=== PATIENT | male | born 1945 | race Caucasian/White ===

== ENCOUNTER → 2017-01-02 | Outpatient (CLI) | payer MEDICARE ==
--- NOTE | 2017-01-02 12:04 | ECHOF ---
Referral Reason:Hypertention I10 Pre Op MEASUREMENTS -------- HEIGHT: 182.9 cm WEIGHT: 90.7 kg BP: RVIDd: 3.3 cm (< 3.3) IVSd: 1.0 cm (0.6 - 1.1) LVIDd: 4.9 cm (3.9 - 5.3) LVPWd: 1.0 cm (0.6 - 1.1) IVSs: 1.5 cm LVIDs: 3.6 cm LVPWs: 1.3 cm LA Diam: 3.7 cm (2.7 - 3.8) Ao Diam: 2.9 cm (2.0 - 3.7) AV Cusp: 2.3 cm (1.5 - 2.6) LA Diam: 4.1 cm (2.7 - 3.8) MV EXCURSION: 20.477 mm (> 18.000) MV EF SLOPE: 100 mm/s (70 - 150) EPSS: 0.3 cm MV E Florian: 0.53 m/s MV DecT: 274 ms MV A Florian: 0.49 m/s MV E/A Ratio: 1.08 AR PHT: 943 ms RAP: 5.00 mmHg RVSP: 29.40 mmHg FINDINGS -------- Sinus rhythm. This was a technically good study. LV size, wall thickness and systolic function are normal, with an EF greater than 55%. The left mando tricular size is normal. The right ventricle is normal in size. The left atrial size is normal. The right atrial size is normal. There is mild aortic regurgitation. Mild mitral regurgitation is present. Mild tricuspid regurgitation present. There is no evidence of pulmonary hypertension. The right v entricular systolic pressure, as measured by Doppler, is 29.40mmHg. Trace/mild (physiologic) pulmonic regurgitation. The aortic root size is normal. There is no pericardial effusion. CONCLUSIONS -------- 1. LV size, wall thickness and systolic function are normal, with an EF greater than 55%. 2. The left ventricular size is normal. 3. There is mild aortic regurgitation. 4. Mild mitral regurgitation is present. 5. Mild tricuspid regurgitation present. 6. There is no evidence of pulmonary hypertension. 7. The right ventricular systolic pressure, as measured by Doppler, is 29.40mmHg. 8. Trace/mild (physiologic) pulmonic regurgitation. 9. The aortic root size is normal. 10. There is no pericardial effusion. [employer]: Haleigh Bertrand RDCS
== END | disposition home or self-care (01) ==
LOC: RADECHMAIN 08:05
PROVIDERS: ATTEND Pediatrics
DX: Z01.818 Encounter for other preprocedural examination (principal); I08.3 Combined rheumatic disorders of mitral, aortic and tricuspid valves; I10 Essential (primary) hypertension
CPT/HCPCS: 93306

== ENCOUNTER → 2018-02-26 | Outpatient (CLI) | payer MEDICARE ==
--- NOTE | 2018-02-26 13:59 | CT ---
EXAMINATION TYPE: CT lumbar spine wo con DATE OF EXAM: 02/26/2018 11:48 AM COMPARISON: None HISTORY: Bilateral leg weakness and numbness post surgery Jan 2018. CT DLP: 1219.3 mGycm Automated exposure control for dose reduction was used. Unenhanced CT of the lumbar spine was performed. Bone and soft tissue window settings are submitted as well as coronal and sagittal reconstructions. Correlate with the numbering system utilized on the exam prior to any surgical intervention. L1-L2: Degenerative disc disease with mild hypertrophic change of the facets. No obvious disc herniat ion or canal stenosis. L2-L3: Degenerative disc disease with no obvious canal stenosis or foraminal encroachment.. L3-L4: Postsurgical change with grade 1 anterolisthesis L3 on L4. Metallic artifact obscures the spin al canal resulting in nondiagnostic assessment. Abnormal attenuation the posterior soft tissues exten ding from L2-S1 likely related postsurgical scar or granulation. There is reduced mineralization of t he endplates at L2-L3 may be postsurgical. Correlate clinically to exclude infection otherwise consid er MRI. L4-L5: Postsurgical changes with extensive metallic hardware artifact results in nondiagnostic asses sment of the neural foramina and spinal canal L5-S1: Severe degenerative disc disease with postsurgical changes with. Metallic artifact results in nondiagnostic assessment spinal canal. There is cystic structure in the left adnexa may be related to a bladder diverticulum but is only par tially included. Vascular calcification of the aorta. Abnormal soft tissue seen posteriorly at the po stsurgical levels likely related to postsurgical scar or granulation tissue. It does encase upon the posterior margin of the sacrum. Due to resolution and artifact assessment is limited. 5 mm hyperdense area within the upper pole left kidney. Mild bladder wall thickening correlate for chronic cystitis. IMPRESSION: 1. Postsurgical change with grade 1 anterolisthesis of the presumed L3 on L4 segment. There is reduce d mineralization of the endplates at this level which may be postsurgical correlate clinically to exc lude infection or with MRI as warranted. 2. At the surgical levels the spinal canal is nondiagnostic in assessment due to extreme metallic art ifact. 3. 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 There also is mild bladder wall thickening correlate for cystitis otherwise, consider other etiologies 4. There is a 5 mm hyperdense lesion within the upper pole left kidney likely related to hemorrhagic cyst. Short-term follow-up ultrasound could be obtained.
== END | disposition home or self-care (01) ==
LOC: RADCTMAIN 11:28
DX: M43.16 Spondylolisthesis, lumbar region (principal)
CPT/HCPCS: 72131

== ENCOUNTER → 2018-04-01 | Outpatient (CLI) | payer MEDICARE ==
--- NOTE | 2018-04-01 13:56 | CT ---
EXAMINATION TYPE: CT lumbar spine wo con DATE OF EXAM: 04/01/2018 12:58 PM COMPARISON: CT lumbar spine February 26, 2018 HISTORY: Lumbar spondylolisthesis per order. Ongoing low back pain with surgery January 24, 2018. CT DLP: 976 mGycm Automated exposure control for dose reduction was used. 5 lumbar-type vertebra are redemonstrated. There is stable slight levoconvex scoliotic curvature cent ered at L3-L4 level. Stable slight grade 1 retrolisthesis L4 on L5. Posterior interpedicular rods and screws transfix L3-S1 levels bilaterally similar to prior. There is persistent metallic disc materia l L3-L4 level with surrounding lucency involving the adjacent endplates. There is persistent metallic disc material L4-L5 level. There is persistent moderate to severe disc space narrowing L5-S1 level. Increased sclerosis at surgical level redemonstrated. Vertebral body heights and disc space heights a lucio L3 level are stable and satisfactory. Axial images at L1-L2 level redemonstrate mild facet degenerative changes bilaterally. Spinal canal i s preserved. Bilateral neural foramina are patent. Bilateral laminectomy defects and spinous process resection L4-S1 levels bilaterally is redemonstrate d. Metallic artifact at L3-S1 levels causes streak artifact making evaluation suboptimal similar to p riociarra. Punctate density left S1-S2 level posteriorly axial image 74 measuring 3 mm is of uncertain chris ology. Prior study axial images did not include through this level. Hyperdense nonabsorbed pills righ t lower quadrant coronal image 3 incidentally noted. Stable 5 mm hyperdense round lesion posterior up per pole left kidney axial image 13 favors proteinaceous cyst. IMPRESSION: Postsurgical change L3-S1 levels with stable alignment as detailed above.
== END ==
LOC: RADCTMAIN 12:16
DX: M47.26 Other spondylosis with radiculopathy, lumbar region (principal); Z98.1 Arthrodesis status
CPT/HCPCS: 72131

== ENCOUNTER → 2018-05-06 | Outpatient (CLI) | payer MEDICARE ==
--- NOTE | 2018-05-06 09:20 | XR ---
EXAM TYPE: LUMBAR SPINE X RAY SERIES COMPARISON: NONE HISTORY: Postop TECHNIQUE: 4 views are submitted. FINDINGS: Postsurgical changes are seen involving the lower lumbar spine. Deformity involving the inferior endp late of L3 is stable. This appears somewhat irregular correlate with surgical history. There is madison rn for infection correlate with MRI with contrast. There is postsurgical changes at levels L3-S1. Ali gnment is stable. IMPRESSION: 1. Stable postsurgical changes with deformity involving the endplate of L3 and superior endplate of L 4 level the surgical level appears stable from the prior CT scan. This may be postsurgical. This appe ars unchanged dating back to 02/24/2017.
== END ==
LOC: RADXRMAIN 07:27
PROVIDERS: ATTEND Physician Assistant Surgical
DX: M43.8X6 Other specified deforming dorsopathies, lumbar region (principal); Z98.890 Other specified postprocedural states
CPT/HCPCS: 72100

== ENCOUNTER → 2018-08-12 | Outpatient (CLI) | payer MEDICARE ==
--- NOTE | 2018-08-12 09:07 | XR ---
EXAM TYPE: LUMBAR SPINE X RAY SERIES COMPARISON: NONE HISTORY: spondylosis with radiculopathy TECHNIQUE: 4 views are submitted. FINDINGS: Postsurgical changes are seen involving the lower lumbar spine. Deformity involving the inferior endp late of L3 is stable. This appears somewhat irregular correlate with surgical history. There is madison rn for infection correlate with MRI with contrast. There is postsurgical changes at levels L3-S1. Ali gnment is stable. IMPRESSION: 1. Stable postsurgical changes with deformity and irregularity involving the endplate of L2 and L3 at the surgical level appears stable from the prior exam. This may be postsurgical. This appears unchan ged dating back to 02/24/2017.
== END | disposition home or self-care (01) ==
LOC: RADXRMAIN 07:38
PROVIDERS: ATTEND Physician Assistant Surgical
DX: M43.8X6 Other specified deforming dorsopathies, lumbar region (principal); M47.26 Other spondylosis with radiculopathy, lumbar region; Z98.890 Other specified postprocedural states
CPT/HCPCS: 72100

== ENCOUNTER 2018-09-18 09:51 | Inpatient (IN) | payer MEDICARE ==
[2018-09-18] MEDS ORDERED: diphenhydrAMINE 25 MG CAP PO PRN (10:44)
[2018-09-18] MEDS ORDERED: PROCHLORPERAZINE SUPPOSITORY 25 MG SUPP RECTAL PRN (10:44)
[2018-09-18] MEDS ORDERED: METOCLOPRAMIDE 5 MG/ML 2 ML VIAL IVP PRN (10:44)
[2018-09-18] MEDS ORDERED: ONDANSETRON 4 MG/2 ML VIAL IVP PRN (10:44)
[2018-09-18] MEDS ORDERED: TEMAZEPAM 15 MG CAP PO PRN (10:44)
[2018-09-18] MEDS ORDERED: SENNOSIDES-DOCUSATE SODIUM 1 EACH TAB PO PRN (10:44)
[2018-09-18] MEDS ORDERED: HYDROmorphone 0.5 MG/0.5 ML SYRINGE IVP PRN ×3 (10:44)
[2018-09-18] MEDS ORDERED: HYDROcodone/APAP 5-325MG 1 EACH TAB PO PRN (10:44)
[2018-09-18] MEDS: HYDROcodone/APAP 5-325MG 1 EACH TAB PO PRN ×2 (11:16→17:44)
--- NOTE | 2018-09-18 11:19 | P.HPOR ---
History of Present Illness H&P Date: 09/18/18 Chief Complaint: Right upper arm pain Patient is a 73 year old male. Ahmet presents to the office for recheck of his left shoulder. He returns to the office with increased symptoms about his right shoulder today. Patient has had recent bout of bronchitis and had been running a fever. He was placed on an oral steroid and antibiotic which he finished this past Sunday. He has had considerable pain about his right shoulder since this past Sunday. He does not appear healthy today. He has fullness in the triceps and shoulder and his shoulder is very painful for him today. The patient is right hand dominant. Patient states his pain level is at 8/10. He continues to have pain. He describes his pain as sharp, throbbing and aching. The pain is constant. Patient states his symptoms are worse with lifting, sitting and lying in bed. Patient does not work outside of his home Previous history: He is status post reverse left total shoulder arthroplasty, performed on 12/12/13. Patient continues to do very well postoperatively. Patient is able to do the things he likes to do. He is happy with his shoulder. He is having no left shoulder pain and rates his pain 0/10. He does have complaint of right shoulder pain today. He states that he has been experiencing ongoing symptoms about his right shoulder for quite some time. He states that his symptoms have been getting progressively worse over time. Patient states on his intake form that pain level is at 8/10. He continues to have pain and weakness. He describes his pain as sharp, stabbing and throbbing. The pain is intermittent. Patient states his symptoms are worse with stairs and lying in bed. Review of Systems All systems: negative Constitutional: Reports chills, Reports fever, Denies anorexia, Denies daytime sleepiness Eyes: denies blurred vision, denies pain Ears, nose, mouth and throat: Denies headache, Denies sore throat Cardiovascular: Denies chest pain, Denies shortness of breath Respiratory: Denies cough Gastrointestinal: Denies abdominal pain, Denies diarrhea, Denies nausea, Denies vomiting Musculoskeletal: Denies myalgias Integumentary: Denies pruritus, Denies rash Neurological: Denies numbness, Denies weakness Psychiatric: Denies anxiety, Denies depression Endocrine: Denies fatigue, Denies weight change Past Medical History Past Medical History: Hypertension, Osteoarthritis (OA), Pneumonia Additional Past Medical History / Comment(s): VARICOSE VEINS History of Any Multi-Drug Resistant Organisms: None Reported Past Surgical History: Back Surgery Additional Past Surgical History / Comment(s): LAURA CARPEL TUNNEL, LT SHOULDER SURGERY X 2 Past Anesthesia/Blood Transfusion Reactions: No Reported Reaction Past Psychological History: No Psychological Hx Reported Smoking Status: Never smoker Past Alcohol Use History: Occasional Past Drug Use History: None Reported - Past Family History Mother Family Medical History: Cancer Brother(s) Family Medical History: Cancer Medications and Allergies Home Medications Medication Instructions Recorded Confirmed Type Aspirin 81 mg PO DAILY 12/05/13 12/05/13 History amLODIPine BESYLATE [Norvasc] 10 mg PO QAM 12/05/13 12/12/13 History Doxycycline Monohydrate [Monodox] 100 mg PO Q12HR #10 cap 12/13/13 Rx Hydrocodone/Acetaminophen [Sumner 1 - 2 each PO Q6HR PRN #90 tab 12/13/13 Rx 5-325] Allergies Allergy/AdvReac Type Severity Reaction Status Date / Time No Known Allergies Allergy Verified 12/04/13 15:52 Physical Examination Right Shoulder Examination Skin: There are no rashes, ulcerations or lesions in the regions examined. Mental Status: Patient is oriented to time, place and person. Mood and affect are appropriate. Respiratory: Appears to be short of breath. HEENT: Normal cephalic atraumatic. Extraocular movements are intact. . C-Spine: Normal (No tenderness to palpation, Full flexion, extension and rotation without pain, negative Spurlings Right shoulder: Fullness in the triceps and in the shoulder. Mild erythema Pain to palpation: Diffuse tenderness throughout the shoulder and upper arm. Not put through shoulder exam secondary to pain. Neurovascular status: There is an intact EPL, FPL, extensor indicis, hand intrinsics and the FDP to the small finger. Intact radial, median and ulnar nerve sensations as well as 2+ radial pulse and brisk capillary refill distally. Results Right shoulder: Patient has advanced glenohumeral joint osteoarthritis with significant medial erosion of the glenoid. There is no evidence of fracture. No evidence of osseous lesions. X-rays of the left shoulder including 2+ views were ordered, obtained and interpreted from an orthopedic standpoint. Components intact and in place without evidence of migration or loosening. No evidence of osteolysis. Assessment and Plan (1) Shoulder pain, right Narrative/Plan: The clinical findings were discussed with the patient. Natural history is discussed. The possibility of recurrence, worsening, and/or the need for further management was addressed with the patient at length. Options of treatment were reviewed including observation, conservative treatment, as well as the possibility of surgical intervention. We will plan on direct admit. He will need to be evaluated by medicine. Likely infectious disease. We will need and MRI of the shoulder and humerus. We were not able to aspirate any fluid and he will need labs. Based on the patients response to current treatment, the patient may need further treatment in the form of further imaging with MRI or CT, physical the rapy, injections, bracing/casting, or possibility of surgery. The patients questions were answered to the best of my ability in a language that was understood and the patient agrees with the plan. Current Visit: Yes Status: Acute Priority: Medium Code(s): M25.511 - PAIN IN RIGHT SHOULDER SNOMED Code(s): 68916748 Time with Patient: Greater than 30
[2018-09-18 11:40] LABS: Basophils # (A) 0.1 k/uL (0-0.2); Basophils % (A) 0 %; Eosinophils # (A) 0.1 k/uL (0-0.7); Eosinophils % (A) 0 %; HCT 39.2 % (39.0-53.0); HGB 11.8 gm/dL (13.0-17.5); Hypochromasia Slight; Lymphocytes # (A) 0.9 k/uL (1.0-4.8); Lymphocytes % (A) 5 %; MCH 29.7 pg (25.0-35.0); MCHC 30.1 g/dL (31.0-37.0); MCV 98.8 fL (80.0-100.0); Mean Platelet Volume 8.2; Monocytes # (A) 0.6 k/uL (0-1.0); Monocytes % (A) 3 %; Neutrophils # (A) 17.9 k/uL (1.3-7.7); Neutrophils % (A) 91 %; Platelet Count 368 k/uL (150-450); RBC 3.97 m/uL (4.30-5.90); RDW 14.9 % (11.5-15.5); WBC 19.7 k/uL (3.8-10.6)
[2018-09-18 11:42] LABS: Albumin 2.5 g/dL (3.5-5.0); Calcium 8.3 mg/dL (8.4-10.2); Potassium 4.9 mmol/L (3.5-5.1); Total Bilirubin 0.7 mg/dL (0.2-1.3); Total Protein 5.6 g/dL (6.3-8.2)
[2018-09-18] MEDS ORDERED: VANCOMYCIN IV PER PHARMACY 1 EACH MISC MISCELLANE PRN (11:52)
[2018-09-18] MEDS ORDERED: KETOROLAC 30 MG/ML 1 ML VIAL IVP PRN (11:55)
--- NOTE | 2018-09-18 12:34 | P.CONS ---
History of Present Illness - Reason for Consult Possible infected right shoulder. - History of Present Illness 73-year-old gentleman was admitted for severe right shoulder pain. Patient appears to have severe osteoarthritis patient denied any fever patient had fever when he had bronchitis about a week ago patient was treated with oxygen and systemic steroids. Patient the right arm pain has been progressively getting worse. Patient does have leukocytosis significant limitation of movements of the right shoulder. Patient I shoulder is warm to touch but I my suspicion is patient has severe inflammation rather than infection of the shoulder. Patient denied any recent hospitalization or a PICC line. I can't clearly see any reason for hematogenous spread of the infection to the right sore shoulder. Although this cannot be completely ruled out I'll obtain blood cultures patient will be started on vancomycin empirically will discuss with orthopedic surgery may need the incision and drainage debridement and cultures of the synovial fluid. And had left shoulder arthroplasty in 2013 10 pain in the right shoulder is severely/10 sharp in nature and throbbing Review of Systems REVIEW OF SYSTEMS: CONSTITUTIONAL: No fever, no malaise, no fatigue. HEENT: No recent visual problems or hearing problems. Denied any sore throat. CARDIOVASCULAR: No chest pain, orthopnea, PND, no palpitations, no syncope. PULMONARY: No shortness of breath, no cough, no hemoptysis. GASTROINTESTINAL: No diarrhea, no nausea, no vomiting, no abdominal pain. NEUROLOGICAL: No headaches, no weakness, no numbness. HEMATOLOGICAL: Denies any bleeding or petechiae. GENITOURINARY: Denies any burning micturition, frequency, or urgency. MUSCULOSKELETAL/RHEUMATOLOGICAL: As mentioned above ENDOCRINE: Denies any polyuria or polydipsia. The rest of the 14-point review of systems is negative. Past Medical History Past Medical History: Hypertension, Osteoarthritis (OA), Pneumonia Additional Past Medical History / Comment(s): VARICOSE VEINS History of Any Multi-Drug Resistant Organisms: None Reported Past Surgical History: Back Surgery Additional Past Surgical History / Comment(s): LAURA CARPEL TUNNEL, LT SHOULDER SURGERY X 2 Past Anesthesia/Blood Transfusion Reactions: No Reported Reaction Past Psychological History: No Psychological Hx Reported Smoking Status: Never smoker Past Alcohol Use History: Occasional Past Drug Use History: None Reported - Past Family History Mother Family Medical History: Cancer Brother(s) Family Medical History: Cancer Medications and Allergies Home Medications Medication Instructions Recorded Confirmed Type Bimatoprost [Lumigan .01% Ophth 1 drop BOTH EYES HS 09/18/18 09/18/18 History Soln] Brimonidine Tartrate [Alphagan P 1 drops LEFT EYE BID 09/18/18 09/18/18 History 0.2% Ophth Soln] Diclofenac Sodium [Voltaren] 75 mg PO BID 09/18/18 09/18/18 History Dorzolamide HCl/Pf [Dorzolamide 2% 1 drop LEFT EYE BID 09/18/18 09/18/18 History Eye Drop] Hydrochlorothiazide 25 mg PO DAILY 09/18/18 09/18/18 History Tamsulosin HCl [Flomax] 0.4 mg PO HS 09/18/18 09/18/18 History Allergies Allergy/AdvReac Type Severity Reaction Status Date / Time No Known Allergies Allergy Verified 09/18/18 11:50 Physical Exam Vitals: Vital Signs Temp Pulse Resp BP Pulse Ox 09/18/18 11:08 98.2 F 83 16 117/68 95 Intake and Output 09/17/18 09/18/18 09/18/18 22:59 06:59 14:59 Other: Weight 96.5 kg PHYSICAL EXAMINATION: GENERAL: The patient is alert and oriented x3, not in any acute distress. Well developed, well nourished. HEENT: Pupils are round and equally reacting to light. EOMI. No scleral icterus. No conjunctival pallor. Normocephalic, atraumatic. No pharyngeal erythema. No thyromegaly. CARDIOVASCULAR: S1 and S2 present. No murmurs, rubs, or gallops. PULMONARY: Chest is clear to auscultation, no wheezing or crackles. ABDOMEN: Soft, nontender, nondistended, normoactive bowel sounds. No palpable organomegaly. MUSCULOSKELETAL: As mentioned above EXTREMITIES: No cyanosis, clubbing, or pedal edema. NEUROLOGICAL: Gross neurological examination did not reveal any focal deficits. SKIN: No rashes. Results CBC & Chem 7: 09/18/18 11:01 09/18/18 11:01 Labs: Abnormal Lab Results - Last 24 Hours (Table) 09/18/18 09/18/18 Range/Units 11:01 11:01 WBC 19.7 H (3.8-10.6) k/uL RBC 3.97 L (4.30-5.90) m/uL Hgb 11.8 L (13.0-17.5) gm/dL MCHC 30.1 L (31.0-37.0) g/dL Neutrophils # 17.9 H (1.3-7.7) k/uL Lymphocytes # 0.9 L (1.0-4.8) k/uL Sodium 136 L (137-145) mmol/L Chloride 96 L (98-107) mmol/L Carbon Dioxide 32 H (22-30) mmol/L BUN 34 H (9-20) mg/dL Glucose 109 H (74-99) mg/dL Calcium 8.3 L (8.4-10.2) mg/dL Alkaline Phosphatase 451 H (38-126) U/L Total Protein 5.6 L (6.3-8.2) g/dL Albumin 2.5 L (3.5-5.0) g/dL Assessment and Plan Plan: -Right shoulder pain: Possibility of severe inflammation of the right shoulder area and infection although infection cannot be completely ruled out further management as mentioned above. The cultures will be after and patient will be empirically started on vancomycin, further management regarding incision and drainage or cellulitis, synovial fluid Assessment as per orthopedic surgery -Leukocytosis: Adrian is secondary to either infection or reactive from the inflammation -Hypertension: Monitor blood pressure hold off amlodipine for now. -DVT prophylaxis per primary service.
[2018-09-18 12:41] LABS: C Reactive Protein 328.9 mg/L (<10.0)
[2018-09-18] MEDS ORDERED: VANCOMYCIN 1,750 MG in SODIUM CHLORIDE 0.9% 500 ML 500 ML IVPB ONE (13:00)
[2018-09-18] MEDS ORDERED: LORazepam 2 MG/ML INJ IV STA (13:35)
--- NOTE | 2018-09-18 17:31 | MR ---
EXAMINATION TYPE: MR humerus RT w/wo con DATE OF EXAM: 09/18/2018 COMPARISON: None HISTORY: Rt proximal humerus pain/swelling x 1 week CONTRAST: Standard multiplanar, multisequence MRI departmental protocol utilizing 9.5 mL intravenous Gadavist g adolinium contrast. FINDINGS: On the T1 and T2 images there is a 2 x 1 cm area of decreased signal in the subchondral hum eral head on the superior aspect. This is consistent with avascular necrosis. There is narrowing of t he glenohumeral joint space with spur formation. I see no fracture. There is shoulder joint effusion. There is severe narrowing of the subacromial joint space. There is retraction of the supraspinatus t endon. There is thickening and enhancement of the joint capsule on the lateral aspect at the greater tuberosity of the humerus. 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 Large rotator cuff tear with retraction of the supraspinatus tendon. Mild shou lder joint effusion. Pathologic enhancement of the joint capsule on the lateral aspect. This is consi stent with synovitis. Septic arthritis is possible. Neuropathic arthropathy is possible also.
[2018-09-18] MEDS: FAMOTIDINE 20 MG TAB PO SCH (20:37)
[2018-09-19] MEDS: HYDROcodone/APAP 5-325MG 1 EACH TAB PO PRN ×5 (01:39→22:49)
[2018-09-19] MEDS: VANCOMYCIN 1,750 MG in SODIUM CHLORIDE 0.9% 500 ML 500 ML IVPB SCH ×2 (05:23→22:44)
[2018-09-19 07:50] LABS: HCT 36.9 % (39.0-53.0); HGB 11.4 gm/dL (13.0-17.5); Hypochromasia Slight; MCH 30.4 pg (25.0-35.0); MCHC 30.9 g/dL (31.0-37.0); MCV 98.6 fL (80.0-100.0); Mean Platelet Volume 7.6; Platelet Count 391 k/uL (150-450); RBC 3.74 m/uL (4.30-5.90); RDW 14.8 % (11.5-15.5); WBC 15.3 k/uL (3.8-10.6)
[2018-09-19 08:16] LABS: African American GFR (CKD) >90 (>60 ml/min/1.73 sqM)
[2018-09-19 09:01] LABS: Band Neutrophils % 5 %; Lymphocytes # (M) 1.38 k/uL (1.0-4.8); Metamyelocytes # (M) 0.31 k/uL (0); Metamyelocytes % 2 %; Monocytes # (M) 1.22 k/uL (0-1.0); Myelocytes # (M) 0.31 k/uL (0); Myelocytes % 2 %; Neutrophils % (M) 76 %; Nucleated Red Blood Cells 0 /100 WBC (0-0); Total Cells Counted 200
--- NOTE | 2018-09-19 10:58 | P.PN ---
Subjective Progress Note Date: 09/19/18 Principal diagnosis: Right shoulder pain Patient is seen at bedside this morning. He feels improved overall. His right shoulder and upper arm pain is improved. He is denying fever or chills. He denies numbness or tingling. Objective - Vital Signs Vital signs: Vital Signs Temp 98.7 F 09/19/18 07:44 Pulse 85 09/19/18 07:44 Resp 14 09/19/18 07:44 BP 102/63 09/19/18 07:44 Pulse Ox 92 L 09/19/18 07:44 Intake & Output 09/18/18 09/19/18 09/19/18 18:59 06:59 18:59 Intake Total 222 Balance 222 Weight 96.5 kg Intake: Oral 222 Other: # Voids 2 2 - Exam He has improved active ROM where he can actively forward elevate the RUE. There is mild improved edema. NVI with pulse, motor and sensation throughout the RUE. - Constitutional General appearance: Present: no acute distress - Labs CBC & Chem 7: 09/19/18 07:13 09/19/18 07:13 Labs: Abnormal Lab Results - Last 24 Hours (Table) 09/18/18 09/18/18 09/18/18 Range/Units 11:01 11:01 11:01 WBC 19.7 H (3.8-10.6) k/uL RBC 3.97 L (4.30-5.90) m/uL Hgb 11.8 L (13.0-17.5) gm/dL Hct (39.0-53.0) % MCHC 30.1 L (31.0-37.0) g/dL Neutrophils # 17.9 H (1.3-7.7) k/uL Neutrophils # (Manual) (1.3-7.7) k/uL Lymphocytes # 0.9 L (1.0-4.8) k/uL Monocytes # (Manual) (0-1.0) k/uL Metamyelocytes # (Man) (0) k/uL Myelocytes # (Manual) (0) k/uL ESR 99 H (0-15) mm/hr Sodium 136 L (137-145) mmol/L Chloride 96 L (98-107) mmol/L Carbon Dioxide 32 H (22-30) mmol/L BUN 34 H (9-20) mg/dL Glucose 109 H (74-99) mg/dL Calcium 8.3 L (8.4-10.2) mg/dL Alkaline Phosphatase 451 H (38-126) U/L C-Reactive Protein 328.9 H (<10.0) mg/L Total Protein 5.6 L (6.3-8.2) g/dL Albumin 2.5 L (3.5-5.0) g/dL 09/19/18 Range/Units 07:13 WBC 15.3 H (3.8-10.6) k/uL RBC 3.74 L (4.30-5.90) m/uL Hgb 11.4 L (13.0-17.5) gm/dL Hct 36.9 L (39.0-53.0) % MCHC 30.9 L (31.0-37.0) g/dL Neutrophils # (1.3-7.7) k/uL Neutrophils # (Manual) 12.30 H (1.3-7.7) k/uL Lymphocytes # (1.0-4.8) k/uL Monocytes # (Manual) 1.22 H (0-1.0) k/uL Metamyelocytes # (Man) 0.31 H (0) k/uL Myelocytes # (Manual) 0.31 H (0) k/uL ESR (0-15) mm/hr Sodium (137-145) mmol/L Chloride (98-107) mmol/L Carbon Dioxide (22-30) mmol/L BUN (9-20) mg/dL Glucose (74-99) mg/dL Calcium (8.4-10.2) mg/dL Alkaline Phosphatase (38-126) U/L C-Reactive Protein (<10.0) mg/L Total Protein (6.3-8.2) g/dL Albumin (3.5-5.0) g/dL - Imaging and Cardiology MRI of right humerus shows AVN with severe OA at the right shoulder including RTC tear and retraction. There is some effusion. No definitive infection or lesions but could not be ruled out. Assessment and Plan (1) Shoulder pain, right Narrative/Plan: He is improved clinically this morning. Continue pain management. Appreciate IM and ID assistance in recommendations and care. We will continue to monitor and make further recommendations pending his clinical course . Current Visit: Yes Status: Acute Priority: Medium Code(s): M25.511 - PAIN IN RIGHT SHOULDER SNOMED Code(s): 51503698 Time with Patient: Less than 30
[2018-09-19] MEDS: ASPIRIN 81 MG PO SCH (11:21)
[2018-09-19] MEDS: FAMOTIDINE 20 MG TAB PO SCH ×2 (11:21→20:34)
--- NOTE | 2018-09-19 13:09 | P.CONS ---
History of Present Illness - Reason for Consult Consult date: 09/19/18 Right upper extremity infection, sepsis - History of Present Illness This is a 73-year-old male who is well-known to ID service as he initially seen for infection following carpal tunnel release surgery 15 years a go and has been seen periodically over the years. Patient gives history of developing pain in his right shoulder 1 week ago Sunday. He states he also had some fever and chills all day on Sunday and a little bit of cough. He went to his PCP was placed on steroids and antibiotic which she completed last Sunday. He was feeling well but then developed left shoulder pain on Sunday which then went over to his right shoulder by Sunday. He was seen at Dr. White's office and aspiration was attempted on the right shoulder which patient states was unsuccessful and patient was admitted directly to the [facility]. He was found to be afebrile, WBC 19.7, sed rate 99 and CRP 328. Creatinine 0.83. 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 Large rotator cuff tear with retraction of the supraspinatus tendon. Mild shoulder joint effusion. Pathologic enhancement of the joint capsule on the lateral aspect. Consistent with synovitis. Septic arthritis is possible. Neuropathic arthropathy is possible also. Patient has been started on vancomycin. Patient states he has had significant improvement in swelling to his right arm but he continues to have pain and very minimal range of motion. Review of Systems Constitutional: Reports chills, Reports fatigue, Reports fever, Denies lethargy, Denies malaise, Denies poor appetite, Denies weakness Ears, nose, mouth and throat: Denies dental pain, Denies nasal congestion, Denies nasal discharge, Denies vertigo Cardiovascular: Denies decreased exercise tolerance, Denies dyspnea on exertion, Denies edema, Denies leg edema, Denies lightheadedness, Denies syncope Respiratory: Denies congestion, Denies cough, Denies cough with sputum, Denies dyspnea, Denies excessive sputum, Denies hemoptysis, Denies home oxygen Gastrointestinal: Denies abdominal pain, Denies loss of appetite, Denies nausea, Denies vomiting Genitourinary: Reports urinary retention (Patient straight cath at nighttime only.), Denies dysuria Musculoskeletal: right: shoulder pain, shoulder stiffness, shoulder swelling Integumentary: Reports color changes, Reports pruritus, Denies rash, Denies wounds Neurological: Denies ataxia, Denies change in mentation, Denies confusion, Denies numbness, Denies weakness Psychiatric: Denies anxiety, Denies depression Past Medical History Past Medical History: Hypertension, Osteoarthritis (OA), Pneumonia Additional Past Medical History / Comment(s): VARICOSE VEINS History of Any Multi-Drug Resistant Organisms: None Reported Past Surgical History: Back Surgery Additional Past Surgical History / Comment(s): LAURA CARPEL TUNNEL, LT SHOULDER SURGERY X 2 Past Anesthesia/Blood Transfusion Reactions: No Reported Reaction Past Psychological History: No Psychological Hx Reported Smoking Status: Never smoker Past Alcohol Use History: Occasional Additional Past Alcohol Use History / Comment(s): Patient is a lifelong nonsmoker. No illicit drug use. Occasional alcohol use. 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 He also has miniature horses and barn cats as well as a dog. No recent travel. He lives at home with his . Past Drug Use History: None Reported - Past Family History Mother Family Medical History: Cancer Brother(s) Family Medical History: Cancer Medications and Allergies Home Medications Medication Instructions Recorded Confirmed Type Bimatoprost [Lumigan .01% Ophth 1 drop BOTH EYES HS 09/18/18 09/18/18 History Soln] Brimonidine Tartrate [Alphagan P 1 drops LEFT EYE BID 09/18/18 09/18/18 History 0.2% Ophth Soln] Diclofenac Sodium [Voltaren] 75 mg PO BID 09/18/18 09/18/18 History Dorzolamide HCl/Pf [Dorzolamide 2% 1 drop LEFT EYE BID 09/18/18 09/18/18 History Eye Drop] Hydrochlorothiazide 25 mg PO DAILY 09/18/18 09/18/18 History Tamsulosin HCl [Flomax] 0.4 mg PO HS 09/18/18 09/18/18 History Allergies Allergy/AdvReac Type Severity Reaction Status Date / Time No Known Allergies Allergy Verified 09/18/18 11:50 Physical Exam Vitals: Vital Signs Temp Pulse Resp BP Pulse Ox 09/19/18 07:44 98.7 F 85 14 102/63 92 L 09/19/18 04:00 18 09/19/18 02:54 98.0 F 78 17 98/72 97 09/19/18 00:50 16 09/18/18 20:21 98.7 F 85 17 107/64 93 L 09/18/18 20:15 16 09/18/18 11:08 98.2 F 83 16 117/68 95 Intake and Output 09/18/18 09/19/18 09/19/18 22:59 06:59 14:59 Intake Total 222 Balance 222 Intake: Oral 222 Other: # Voids 1 2 Gen: This is 73-year-old male. He is sitting up in bed and appears to be comfortable and in no acute distress. HEENT: Head is atraumatic, normocephalic. Pupils equal, round. Sclerae is anicteric. Conjunctiva pink. Because members of the mouth are moist. No thrush noted. NECK: Supple. No JVD. No lymphadenopathy. No thyromegaly. LUNGS: Clear to auscultation. No wheezes or rhonchi. No intercostal retractions . HEART: Regular rate and rhythm. No murmur. ABDOMEN: Soft. Bowel sounds are present. No masses. No tenderness. EXTREMITIES: No pedal edema. No calf tenderness. Dorsalis pedis +2 bilaterally. To the right shoulder patient has significant swelling extending into his fingers and limited range of motion to the right shoulder. NEUROLOGICAL: Patient is awake, alert and oriented x3. Cranial nerves 2 through 12 are grossly intact. Results Results: Laboratory Results WBC 15.3 k/uL (3.8-10.6) H 09/19/18 07:13 RBC 3.74 m/uL (4.30-5.90) L 09/19/18 07:13 Hgb 11.4 gm/dL (13.0-17.5) L 09/19/18 07:13 Hct 36.9 % (39.0-53.0) L 09/19/18 07:13 MCV 98.6 fL (80.0-100.0) 09/19/18 07:13 MCH 30.4 pg (25.0-35.0) 09/19/18 07:13 MCHC 30.9 g/dL (31.0-37.0) L 09/19/18 07:13 RDW 14.8 % (11.5-15.5) 09/19/18 07:13 Plt Count 391 k/uL (150-450) 09/19/18 07:13 Neutrophils % 91 % 09/18/18 11:01 Neutrophils % (Manual) 76 % 09/19/18 07:13 Band Neutrophils % 5 % 09/19/18 07:13 Lymphocytes % 5 % 09/18/18 11:01 Lymphocytes % (Manual) 9 % 09/19/18 07:13 Monocytes % 3 % 09/18/18 11:01 Monocytes % (Manual) 8 % 09/19/18 07:13 Eosinophils % 0 % 09/18/18 11:01 Basophils % 0 % 09/18/18 11:01 Metamyelocytes % 2 % 09/19/18 07:13 Myelocytes % 2 % 09/19/18 07:13 Neutrophils # 17.9 k/uL (1.3-7.7) H 09/18/18 11:01 Neutrophils # (Manual) 12.30 k/uL (1.3-7.7) H 09/19/18 07:13 Lymphocytes # 0.9 k/uL (1.0-4.8) L 09/18/18 11:01 Lymphocytes # (Manual) 1.38 k/uL (1.0-4.8) 09/19/18 07:13 Monocytes # 0.6 k/uL (0-1.0) 09/18/18 11:01 Monocytes # (Manual) 1.22 k/uL (0-1.0) H 09/19/18 07:13 Eosinophils # 0.1 k/uL (0-0.7) 09/18/18 11:01 Basophils # 0.1 k/uL (0-0.2) 09/18/18 11:01 Metamyelocytes # (Man) 0.31 k/uL (0) H 09/19/18 07:13 Myelocytes # (Manual) 0.31 k/uL (0) H 09/19/18 07:13 Nucleated RBCs 0 /100 WBC (0-0) 09/19/18 07:13 Manual Slide Review Performed 09/19/18 07:13 Hypochromasia Slight 09/19/18 07:13 ESR 99 mm/hr (0-15) H 09/18/18 11:01 Sodium 136 mmol/L (137-145) L 09/18/18 11:01 Potassium 4.9 mmol/L (3.5-5.1) 09/18/18 11:01 Chloride 96 mmol/L (98-107) L 09/18/18 11:01 Carbon Dioxide 32 mmol/L (22-30) H 09/18/18 11:01 Anion Gap 8 mmol/L 09/18/18 11:01 BUN 34 mg/dL (9-20) H 09/18/18 11:01 Creatinine 0.83 mg/dL (0.66-1.25) 09/19/18 07:13 Est GFR (CKD-EPI)AfAm >90 (>60 ml/min/1.73 sqM) 09/19/18 07:13 Est GFR (CKD-EPI)NonAf 87 (>60 ml/min/1.73 sqM) 09/19/18 07:13 Glucose 109 mg/dL (74-99) H 09/18/18 11:01 Calcium 8.3 mg/dL (8.4-10.2) L 09/18/18 11:01 Total Bilirubin 0.7 mg/dL (0.2-1.3) 09/18/18 11:01 AST 34 U/L (17-59) 09/18/18 11:01 ALT 35 U/L (21-72) 09/18/18 11:01 Alkaline Phosphatase 451 U/L (38-126) H 09/18/18 11:01 C-Reactive Protein 328.9 mg/L (<10.0) H 09/18/18 11:01 Total Protein 5.6 g/dL (6.3-8.2) L 09/18/18 11:01 Albumin 2.5 g/dL (3.5-5.0) L 09/18/18 11:01 CBC & Chem 7: 09/19/18 07:13 09/19/18 07:13 Labs: Abnormal Lab Results - Last 24 Hours (Table) 09/18/18 09/18/18 09/18/18 Range/Units 11:01 11:01 11:01 WBC 19.7 H (3.8-10.6) k/uL RBC 3.97 L (4.30-5.90) m/uL Hgb 11.8 L (13.0-17.5) gm/dL Hct (39.0-53.0) % MCHC 30.1 L (31.0-37.0) g/dL Neutrophils # 17.9 H (1.3-7.7) k/uL Neutrophils # (Manual) (1.3-7.7) k/uL Lymphocytes # 0.9 L (1.0-4.8) k/uL Monocytes # (Manual) (0-1.0) k/uL Metamyelocytes # (Man) (0) k/uL Myelocytes # (Manual) (0) k/uL ESR 99 H (0-15) mm/hr Sodium 136 L (137-145) mmol/L Chloride 96 L (98-107) mmol/L Carbon Dioxide 32 H (22-30) mmol/L BUN 34 H (9-20) mg/dL Glucose 109 H (74-99) mg/dL Calcium 8.3 L (8.4-10.2) mg/dL Alkaline Phosphatase 451 H (38-126) U/L C-Reactive Protein 328.9 H (<10.0) mg/L Total Protein 5.6 L (6.3-8.2) g/dL Albumin 2.5 L (3.5-5.0) g/dL 09/19/18 Range/Units 07:13 WBC 15.3 H (3.8-10.6) k/uL RBC 3.74 L (4.30-5.90) m/uL Hgb 11.4 L (13.0-17.5) gm/dL Hct 36.9 L (39.0-53.0) % MCHC 30.9 L (31.0-37.0) g/dL Neutrophils # (1.3-7.7) k/uL Neutrophils # (Manual) 12.30 H (1.3-7.7) k/uL Lymphocytes # (1.0-4.8) k/uL Monocytes # (Manual) 1.22 H (0-1.0) k/uL Metamyelocytes # (Man) 0.31 H (0) k/uL Myelocytes # (Manual) 0.31 H (0) k/uL ESR (0-15) mm/hr Sodium (137-145) mmol/L Chloride (98-107) mmol/L Carbon Dioxide (22-30) mmol/L BUN (9-20) mg/dL Glucose (74-99) mg/dL Calcium (8.4-10.2) mg/dL Alkaline Phosphatase (38-126) U/L C-Reactive Protein (<10.0) mg/L Total Protein (6.3-8.2) g/dL Albumin (3.5-5.0) g/dL Assessment and Plan Plan: This is a 73-year-old male well-known to ID service as he has been treated for infections in the past. Patient presents with most likely a septic right shoulder. We would most likely advise for I&D and obtain cultures. Patient is currently on vancomycin which will be continued. Further recommendations as patient progresses. The above dictated assessment and findings were discussed with Dr. Cesar. The impression and plan of care have been directed as dictated. Rasheeda Carter nurse practitioner acting as scribe for Dr. Cesar.
--- NOTE | 2018-09-19 13:13 | P.PN ---
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 possibly of septic arthritis is low but it was not ruled out patient is on empiric vancomycin and infectious disease will evaluate the patient and patient does have leukocytosis which is improving at this time. Swelling of the right arm and shoulder is actually better today Constitutional: Denied any fatigue denied any fever. Cardio vascular: denied any chest pain, palpitations Gastrointestinal denied any nausea vomiting Pulmonary: Denied any shortness of breath cough Neurologic denied any new focal deficits All inpatient medications were reviewed and appropriate changes in these medications as dictated in the interval history and assessment and plan. Objective - Vital Signs Vital signs: Vital Signs Temp 98.7 F 09/19/18 07:44 Pulse 85 09/19/18 07:44 Resp 14 09/19/18 07:44 BP 102/63 09/19/18 07:44 Pulse Ox 92 L 09/19/18 07:44 Intake & Output 09/18/18 09/19/18 09/19/18 18:59 06:59 18:59 Intake Total 222 Balance 222 Weight 96.5 kg Intake: Oral 222 Other: # Voids 2 2 - Exam PHYSICAL EXAMINATION: GENERAL: The patient is alert and oriented x3, not in any acute distress. Well developed, well nourished. HEENT: Pupils are round and equally reacting to light. EOMI. No scleral icterus. No conjunctival pallor. Normocephalic, atraumatic. No pharyngeal erythema. No thyromegaly. CARDIOVASCULAR: S1 and S2 present. No murmurs, rubs, or gallops. PULMONARY: Chest is clear to auscultation, no wheezing or crackles. ABDOMEN: Soft, nontender, nondistended, normoactive bowel sounds. No palpable organomegaly. MUSCULOSKELETAL: As mentioned above EXTREMITIES: No cyanosis, clubbing, or pedal edema. NEUROLOGICAL: Gross neurological examination did not reveal any focal deficits. SKIN: No rashes. - Labs CBC & Chem 7: 09/19/18 07:13 09/19/18 07:13 Labs: Abnormal Lab Results - Last 24 Hours (Table) 09/19/18 Range/Units 07:13 WBC 15.3 H (3.8-10.6) k/uL RBC 3.74 L (4.30-5.90) m/uL Hgb 11.4 L (13.0-17.5) gm/dL Hct 36.9 L (39.0-53.0) % MCHC 30.9 L (31.0-37.0) g/dL Neutrophils # (Manual) 12.30 H (1.3-7.7) k/uL Monocytes # (Manual) 1.22 H (0-1.0) k/uL Metamyelocytes # (Man) 0.31 H (0) k/uL Myelocytes # (Manual) 0.31 H (0) k/uL Assessment and Plan Plan: -Right shoulder pain: Possibility of severe inflammation of the right shoulder area and infection although infection cannot be completely ruled out further managemen with vancomycin. Patient mostly appears to have avascular necrosis of the humerus along with the rotator cuff tear. Infectious disease will evaluate the patient -Leukocytosis: secondary to either infection or reactive from the inflammation, improving -Hypertension: Monitor blood pressure hold off amlodipine for now. Let pressure remains low normal -DVT prophylaxis per primary service.
[2018-09-19] MEDS: LATANOPROST 0.005% OPHTH DROPS 2.5 ML BTL BOTH EYES SCH (20:29)
[2018-09-19] MEDS: BRIMONIDINE TARTRATE 0.2% DROPS 5 ML BTL LEFT EYE SCH (20:30)
[2018-09-19] MEDS: DORZOLAMIDE HCL 2% DROPS 10 ML BTL LEFT EYE SCH (20:31)
[2018-09-19] MEDS: TAMSULOSIN 0.4 MG CAP.ER.24H PO SCH (20:34)
--- NOTE | 2018-09-20 07:51 | P.CON ---
Consult Note - . Consult date: 09/19/18 Assessment/Plan:: This is a 73-year-old male who is well-known to ID service as he initially seen for infection following carpal tunnel release surgery 15 years ago and has been seen periodically over the years. Patient gives history of developing pain in his right shoulder 1 week ago Sunday. He states he also had some fever and chills all day on Sunday and a little bit of cough. He went to his PCP was placed on steroids and antibiotic which she completed last Sunday. He was feeling well but then developed left shoulder pain on Sunday which then went over to his right shoulder by Sunday. He was seen at Dr. White's office and aspiration was attempted on the right shoulder which patient states was unsuccessful and patient was admitted directly to the [facility]. He was found to be afebrile, WBC 19.7, sed rate 99 and CRP 328. Creatinine 0.83. Patient underwent MRI which revealed severe ostial arthritis in the shoulder joint with evidence of avascular necrosis of the superior femoral head. Large rotator cuff tear with retraction of the supraspinatus tendon. Mild shoulder joint effusion. Pathologic enhancement of the joint capsule on the lateral aspect. Consistent with synovitis. Septic arthritis is possible. Neuropathic arthropathy is possible also. Patient has been started on vancomycin. Patient states he has had significant improvement in swelling to his right arm but he continues to have pain and very minimal range of motion. Please see the consult note is dictated by nurse practitioner Rasheeda Emma. As related this very pleasant 73-year-old male has been followed in the office after his extensive right hand infection after his carpal tunnel surgery 15 years ago. He is a very hard-working individual has had significant degenerative changes to his joints. He's had a prior left total shoulder which was done modestly well, but then had the severe sudden pain into his right shoulder. There is evidence of marked disease synovitis and possibility of sep tic arthritis. I had the pleasure of discussing the case with orthopedic team and they're planning an arthroscopic evaluation to the joint which point in time cultures for routine, AFB and fungus are requested. If this time vancomycin is being utilized as well as pain control. The patient understands that if septic arthritis is found he will be requiring a course of outpatient intravenous anti biotic therapy. The patient's respiratory symptoms are resolved, does have leukocytosis that at this time is much more likely related to infection rather than a post-steroid effect. CRP of 328 is highly suggestive of infection. I agree with evaluation, assessment and plan as dictated by nurse practitioner Mrs. Rasheeda Carter.
[2018-09-20] MEDS: FAMOTIDINE 20 MG TAB PO SCH ×2 (09:04→21:53)
[2018-09-20] MEDS: ASPIRIN 81 MG PO SCH (09:04)
[2018-09-20 09:43] LABS: African American GFR (CKD) >90 (>60 ml/min/1.73 sqM)
[2018-09-20] MEDS ORDERED: IV FLUID CONTINUATION 1,000 ML IV ONE (10:19)
[2018-09-20 10:40] VITALS: BMI 30.5
[2018-09-20] MEDS ORDERED: fentaNYL (PF) 50 MCG/ML 2 ML AMP IVP ONE (10:54)
[2018-09-20] MEDS ORDERED: MIDAZOLAM (PF) 2 MG/2 ML VIAL IVP ONE (10:54)
--- NOTE | 2018-09-20 11:05 | P.ANPRN ---
Procedure Note - Anesthesia - Nerve Block Performed Right Interscalene Single Time Out Performed: Yes Date of Procedure: 09/20/18 Procedure Start Time: 10:53 Procedure Stop Time: 11:02 Location of Patient Procedure: PreOp Indication: Requested by physician Specifically requested for management of pain by DrRod: Berto White Sedation Type: Sedate with meaningful contact maintained Preparation: Sterile Prep Position: Supine Needle Gauge: 21 (pujung) Technique: Ultrasound Injectate: 0.5% Ropivacaine (see comment for volume) (20 ml) Blood Aspirated: No Pain Paresthesia on Injection Noted: No Resistance on Injection: Normal Events: Uneventful and Well Tolerated
[2018-09-20 11:29] LABS: C Reactive Protein 241.9 mg/L (<10.0)
[2018-09-20] MEDS: BRIMONIDINE TARTRATE 0.2% DROPS 5 ML BTL LEFT EYE SCH ×2 (11:31→17:32)
[2018-09-20] MEDS: DORZOLAMIDE HCL 2% DROPS 10 ML BTL LEFT EYE SCH ×2 (11:31→17:32)
[2018-09-20] MEDS ORDERED: fentaNYL (PF) 50 MCG/ML 2 ML AMP ONE (11:47)
[2018-09-20] MEDS ORDERED: KETAMINE 10 MG/ML 20 ML VIAL ONE (11:47)
[2018-09-20] MEDS ORDERED: PHENYLEPHRINE-0.9% NACL SYG 1 MG/10 ML SYRINGE ONE (11:47)
[2018-09-20] MEDS ORDERED: MIDAZOLAM 2 MG/2 ML VIAL ONE (11:47)
[2018-09-20] MEDS ORDERED: PROPOFOL 10 MG/ML 20 ML VIAL IV ONE (11:47)
[2018-09-20] MEDS ORDERED: SUCCINYLCHOLINE CHLORIDE 100 MG/5 ML SYR IV ONE (11:47)
[2018-09-20] MEDS ORDERED: LIDOCAINE 1% INJ 10MG/ML (20 ML MDV) ONE (11:47)
[2018-09-20] MEDS ORDERED: LACTATED RINGERS 1,000 ML IV ONE (12:20)
[2018-09-20] MEDS ORDERED: ENALAPRILAT 1.25 MG/ML 1 ML VIAL IVP ONE (13:30)
[2018-09-20] MEDS: HYDROmorphone 1 MG/ML 1 ML SYRINGE IVP ONE ×2 (13:36→13:49)
[2018-09-20] MEDS ORDERED: ACETAMINOPHEN IV (For NPO) 1,000 MG/100 ML VIAL IVPB ONE (13:50)
[2018-09-20] MEDS: VANCOMYCIN 1,750 MG in SODIUM CHLORIDE 0.9% 500 ML 500 ML IVPB SCH (14:38)
--- NOTE | 2018-09-20 16:19 | P.PN ---
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 possibly of septic arthritis is low but it was not ruled out patient is on empiric vancomycin and infectious disease will evaluate the patient and patient does have leukocytosis which is improving at this time. Swelling of the right arm and shoulder is actually better today 09/20/2018 Patient will go for incision and drainage today Constitutional: Denied any fatigue denied any fever. Cardio vascular: denied any chest pain, palpitations Gastrointestinal denied any nausea vomiting Pulmonary: Denied any shortness of breath cough Neurologic denied any new focal deficits All inpatient medications were reviewed and appropriate changes in these medications as dictated in the interval history and assessment and plan. Objective - Vital Signs Vital signs: Vital Signs Temp 98.1 F 09/20/18 14:30 Pulse 96 09/20/18 14:30 Resp 16 09/20/18 14:30 BP 112/62 09/20/18 14:30 Pulse Ox 90 L 09/20/18 14:30 Intake & Output 09/19/18 09/20/18 09/20/18 18:59 06:59 18:59 Intake Total 1000 1100 Output Total 400 270 Balance 600 830 Weight 96.5 kg Intake: IV 1100 Intake, IV Titration 1000 Amount Vancomycin 1,750 mg In 1000 Sodium Chloride 0.9% 500 ml 500 ml @ 167 mls/hr IVPB Q16H HERRERA Rx#: [id number] Output: Urine 400 250 Estimated Blood Loss 20 Other: Voiding Method Toilet # Voids 3 - Exam PHYSICAL EXAMINATION: GENERAL: The patient is alert and oriented x3, not in any acute distress. Well developed, well nourished. HEENT: Pupils are round and equally reacting to light. EOMI. No scleral icterus. No conjunctival pallor. Normocephalic, atraumatic. No pharyngeal erythema. No thyromegaly. CARDIOVASCULAR: S1 and S2 present. No murmurs, rubs, or gallops. PULMONARY: Chest is clear to auscultation, no wheezing or crackles. ABDOMEN: Soft, nontender, nondistended, normoactive bowel sounds. No palpable or ganomegaly. MUSCULOSKELETAL: As mentioned above EXTREMITIES: No cyanosis, clubbing, or pedal edema. NEUROLOGICAL: Gross neurological examination did not reveal any focal deficits. SKIN: No rashes. - Labs CBC & Chem 7: 09/19/18 07:13 09/20/18 08:12 Labs: Abnormal Lab Results - Last 24 Hours (Table) 09/20/18 09/20/18 Range/Units 08:12 08:12 ESR 109 H (0-15) mm/hr C-Reactive Protein 241.9 H (<10.0) mg/L Microbiology - Last 24 Hours (Table) 09/18/18 12:10 Blood Culture - Preliminary Blood No Growth after 48 hours Assessment and Plan Plan: -Right shoulder pain: Possibility of severe inflammation of the right shoulder area and infection although infection cannot be completely ruled out further management with vancomycin. Patient mostly appears to have avascular necrosis of the humerus along with the rotator cuff tear. Infectious disease evaluated the patient. Patient will undergo incision and drainage -Leukocytosis: secondary to either infection or reactive from the inflammation, improving -Hypertension: Monitor blood pressure hold off amlodipine for now. Let pressure remains low normal -DVT prophylaxis per primary service.
--- NOTE | 2018-09-20 16:55 | OP ---
OPERATIVE REPORT DATE OF PROCEDURE: 09/20/2018. PREOPERATIVE DIAGNOSIS: Right shoulder possible septic arthritis. POSTOPERATIVE DIAGNOSIS: Right shoulder possible septic arthritis. PROCEDURE: Arthroscopic irrigation and debridement for presumptive right shoulder septic arthritis. SURGEON: Dr. Berto White CLERICAL ORDER FILLER: Devin Stanton PA-C ANESTHESIA: General endotracheal. ESTIMATED BLOOD LOSS: Minimal. COMPLICATIONS: None apparent. DISPOSITION: Post-Anesthesia Care Unit. INDICATIONS: Ahmet is very pleasant, a well known patient of mine. He presented to my office 2 days ago with severe right shoulder pain and looking quite sickly, frankly. 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 Due to his advanced right shoulder pain as well as the fact that he certainly was feeling quite ill, I did admit him to the hospital from my office. He underwent workup in the hospital laboratory. Laboratory values showed a significantly elevated white count, sedimentation rate and CRP as well as a very elevated alkaline phosphatase. We did consult Infectious Disease Service. MRI was also done of the shoulder and of the humerus which showed no lesions, advanced osteoarthrosis of the shoulder and possible septic arthritis of the shoulder. I did attempt to tap the shoulder in the office, but I was unsuccessful in getting any significant fluid with a tap in the office. I did consult with Dr. Cesar. At this point we made a decision to proceed forward with arthroscopic irrigation and debridement of the shoulder under a presumptive diagnosis of right shoulder deep infection. I did think this was reasonable at this point in time. The risks of the procedure were discussed with Ahmet. These risks include but are not limited to risk of continued infection, nerve damage, bleeding, pain, and a small risk of deep vein thrombosis which could lead to fatal pulmonary embolism. All of Ahmet's questions with regard to the risks were answered to his satisfaction. Appropriate informed consent was obtained. DESCRIPTION OF PROCEDURE: Patient was identified in the preoperative holding area. Surgical site was marked by both the patient and myself. He had been getting IV vancomycin on the floor. He was then transferred to the operative suite. He was placed supine on the operating room table. A general anesthetic was then administered and dosed per the anesthesia department without apparent complication. He was then placed into the beach chair position, well padded in preparation for surgery. Great care was taken to ensure that his cervical spine was in neutral alignment, well padded and maintained that way throughout the operative procedure. Great care was also taken to ensure that his legs were appropriately padded as well. The patient's right upper extremity was then prepped and draped in the usual sterile fashion. Standard surgical pause was undertaken to ensure that we were operating on the correct site and that appropriate preoperative antibiotics had been given. All staff in the room were in agreement and we proceeded. The outlines of the acromion, acromioclavicular joint, clavicle and coracoid were marked with a surgical pen. The planned arthroscopic portals were then marked with a surgical pen. Incision was then made for the posterior portal. The arthroscope was introduced into the glenohumeral joint. Arthroscopic pump pressure was set to 40 mmHg and maintained at the level throughout the entire case. When I did insert the scope, there was not a significant amount of andrea purulent material which was expressed through the cannula. I did place the arthroscope into the joint. The fluid in the joint was somewhat cloudy and a little bit bloody, but, as I said, not significant andrea purulent material. I then utilized an 18-gauge spinal needle to topically localize placement of an anterior/ superior portal. This was made high in the rotator interval. A 5.75 mm cannula was then placed. The outflow was then done through this cannula. I did take deep swab cultures. There were significant loose bodies within the joint. These were removed and taken for culture as well. Of note, he did have advanced erosive osteoarthritis of the right glenohumeral joint. This was noted. He did have a small subcutaneous fluid collection as well. I was able to access this through the anterior/superior portal with a blunt instrument. This seemed to be an area of a hematoma. Again another culture was taken of this area as well and sent for analysis. I then ran approximately 9 to 10 L of fluid through the shoulder prior to closure. I did do a fairly extensive arthroscopic debridement with the arthroscopic shaver. I debrided as much synovial tissue and loose labral tissue was possible. He did have a massive irreparable rotator cuff tear. There was no rotator cuff tissue left. We did debride the greater tuberosity of devitalized scar and bursal tissue as well. At this point in time, no further work was deemed necessary. The shoulder was again thoroughly irrigated and drained with an outflow cannula. The arthroscope was removed from the shoulder. The arthroscopic portals were then closed with 3-0 nylon interrupted suture. Sterile compressive dressings were then applied. All sponge and needle counts were deemed correct prior to closure. The patient tolerated the procedure without apparent complication. His right upper extremity was placed into a standard sling. He was transferred to the recovery room in stable condition. LOGAN / KETAN: [id number] /
[2018-09-20] MEDS: HYDROcodone/APAP 5-325MG 1 EACH TAB PO PRN ×2 (17:31→23:13)
[2018-09-20] MEDS: LATANOPROST 0.005% OPHTH DROPS 2.5 ML BTL BOTH EYES SCH (17:32)
[2018-09-20] MEDS: TAMSULOSIN 0.4 MG CAP.ER.24H PO SCH (21:53)
--- NOTE | 2018-09-21 00:27 | P.PN ---
Subjective Progress Note Date: 09/20/18 This is a 73-year-old male who is well-known to ID service as he initially seen for infection following carpal tunnel release surgery 15 years ago and has been seen periodically over the years. Patient gives history of developing pain in his right shoulder 1 week ago Sunday. He states he also had some fever and chills all day on Sunday and a little bit of cough. He went to his PCP was placed on steroids and antibiotic which she completed last Sunday. He was feeling well but then developed left shoulder pain on Sunday which then went over to his right shoulder by Sunday. He was seen at Dr. White's office and aspiration was attempted on the right shoulder which patient states was unsuccessful and patient was admitted directly to the [facility]. He was found to be afebrile, WBC 19.7, sed rate 99 and CRP 328. Creatinine 0.83. 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 Large rotator cuff tear with retraction of the supraspinatus tendon. Mild shoulder joint effusion. Pathologic enhancement of the joint capsule on the lateral aspect. Consistent with synovitis. Septic arthritis is possible. Neuropathic arthropathy is possible also. Patient has been started on vancomycin. Patient states he has had significant improvement in swelling to his right arm but he continues to have pain and very minimal range of motion. 09/20/2018 patient has now had the surgical intervention to the right shoulder with arthroscopic evaluation. Multiple bony form bodies were seen deep tissue cultures in tissue fragment cultures were all sent to the laboratory. Did not have aclastic grossly septic arthritis appearance. The patient is still very uncomfortable status post procedure with any range of motion of the shoulder he cries in pain. Objective - Vital Signs Vital signs: Vital Signs Temp 98.8 F 09/20/18 20:14 Pulse 83 09/20/18 20:14 Resp 14 09/20/18 20:14 BP 126/64 09/20/18 20:14 Pulse Ox 94 L 09/20/18 20:14 Intake & Output 09/20/18 09/20/18 09/21/18 06:59 18:59 06:59 Intake Total 1000 1340 Output Total 400 270 Balance 600 1070 Weight 96.5 kg Intake: IV 1100 Intake, IV Titration 1000 Amount Vancomycin 1,750 mg In 1000 Sodium Chloride 0.9% 500 ml 500 ml @ 167 mls/hr IVPB Q16H [facility] Rx#: [id number] Oral 240 Output: Urine 400 250 Estimated Blood Loss 20 Other: Voiding Method Toilet # Voids 1 - Exam Gen: This is 73-year-old male. He is sitting up in bed and appears to be comfortable and in no acute distress. HEENT: Head is atraumatic, normocephalic. Pupils equal, round. Sclerae is anicteric. Conjunctiva pink. Because members of the mouth are moist. No thrush noted. NECK: Supple. No JVD. No lymphadenopathy. No thyromegaly. LUNGS: Clear to auscultation. No wheezes or rhonchi. No intercostal retractions. HEART: Regular rate and rhythm. No murmur. ABDOMEN: Soft. Bowel sounds are present. No masses. No tenderness. EXTREMITIES: No pedal edema. No calf tenderness. Dorsalis pedis +2 bilaterally. To the right shoulder patient has significant swelling extending into his fingers and limited range of motion to the right shoulder. NEUROLOGICAL: Patient is awake, alert and oriented x3. - Labs CBC & Chem 7: 09/19/18 07:13 09/20/18 08:12 Labs: Abnormal Lab Results - Last 24 Hours (Table) 09/20/18 09/20/18 Range/Units 08:12 08:12 ESR 109 H (0-15) mm/hr C-Reactive Protein 241.9 H (<10.0) mg/L Microbiology - Last 24 Hours (Table) 09/20/18 12:35 Urine Culture - Preliminary Urine,Voided 09/20/18 12:35 Fungal Culture - Preliminary Shoulder - Right 09/20/18 12:35 Wound Culture - Preliminary Shoulder - Right 09/20/18 12:35 Acid Fast Bacilli Culture - Preliminary Shoulder - Right 09/20/18 12:35 Anaerobic Culture - Preliminary Shoulder - Right 09/20/18 12:35 Fungal Culture - Preliminary Shoulder - Right 09/20/18 12:35 Tissue Culture - Preliminary Shoulder - Right 09/20/18 12:35 Anaerobic Culture - Preliminary Shoulder - Right 09/20/18 12:35 Fungal Culture - Preliminary Shoulder - Right 09/20/18 12:35 Wound Culture - Preliminary Shoulder - Right 09/20/18 12:35 Wound Culture - Preliminary Shoulder - Right 09/20/18 12:35 Anaerobic Culture - Preliminary Shoulder - Right 09/20/18 12:35 Anaerobic Culture - Preliminary Shoulder - Right 09/20/18 12:35 Fungal Culture - Preliminary Shoulder - Right 09/18/18 12:10 Blood Culture - Preliminary Blood No Growth after 48 hours Laboratory Results WBC 15.3 k/uL (3.8-10.6) H 09/19/18 07:13 RBC 3.74 m/uL (4.30-5.90) L 09/19/18 07:13 Hgb 11.4 gm/dL (13.0-17.5) L 09/19/18 07:13 Hct 36.9 % (39.0-53.0) L 09/19/18 07:13 MCV 98.6 fL (80.0-100.0) 09/19/18 07:13 MCH 30.4 pg (25.0-35.0) 09/19/18 07:13 MCHC 30.9 g/dL (31.0-37.0) L 09/19/18 07:13 RDW 14.8 % (11.5-15.5) 09/19/18 07:13 Plt Count 391 k/uL (150-450) 09/19/18 07:13 Neutrophils % 91 % 09/18/18 11:01 Neutrophils % (Manual) 76 % 09/19/18 07:13 Band Neutrophils % 5 % 09/19/18 07:13 Lymphocytes % 5 % 09/18/18 11:01 Lymphocytes % (Manual) 9 % 09/19/18 07:13 Monocytes % 3 % 09/18/18 11:01 Monocytes % (Manual) 8 % 09/19/18 07:13 Eosinophils % 0 % 09/18/18 11:01 Basophils % 0 % 09/18/18 11:01 Metamyelocytes % 2 % 09/19/18 07:13 Myelocytes % 2 % 09/19/18 07:13 Neutrophils # 17.9 k/uL (1.3-7.7) H 09/18/18 11:01 Neutrophils # (Manual) 12.30 k/uL (1.3-7.7) H 09/19/18 07:13 Lymphocytes # 0.9 k/uL (1.0-4.8) L 09/18/18 11:01 Lymphocytes # (Manual) 1.38 k/uL (1.0-4.8) 09/19/18 07:13 Monocytes # 0.6 k/uL (0-1.0) 09/18/18 11:01 Monocytes # (Manual) 1.22 k/uL (0-1.0) H 09/19/18 07:13 Eosinophils # 0.1 k/uL (0-0.7) 09/18/18 11:01 Basophils # 0.1 k/uL (0-0.2) 09/18/18 11:01 Metamyelocytes # (Man) 0.31 k/uL (0) H 09/19/18 07:13 Myelocytes # (Manual) 0.31 k/uL (0) H 09/19/18 07:13 Nucleated RBCs 0 /100 WBC (0-0) 09/19/18 07:13 Manual Slide Review Performed 09/19/18 07:13 Hypochromasia Slight 09/19/18 07:13 ESR 109 mm/hr (0-15) H 09/20/18 08:12 Sodium 136 mmol/L (137-145) L 09/18/18 11:01 Potassium 4.9 mmol/L (3.5-5.1) 09/18/18 11:01 Chloride 96 mmol/L (98-107) L 09/18/18 11:01 Carbon Dioxide 32 mmol/L (22-30) H 09/18/18 11:01 Anion Gap 8 mmol/L 09/18/18 11:01 BUN 34 mg/dL (9-20) H 09/18/18 11:01 Creatinine 0.94 mg/dL (0.66-1.25) 09/20/18 08:12 Est GFR (CKD-EPI)AfAm >90 (>60 ml/min/1.73 sqM) 09/20/18 08:12 Est GFR (CKD-EPI)NonAf 80 (>60 ml/min/1.73 sqM) 09/20/18 08:12 Glucose 109 mg/dL (74-99) H 09/18/18 11:01 Calcium 8.3 mg/dL (8.4-10.2) L 09/18/18 11:01 Total Bilirubin 0.7 mg/dL (0.2-1.3) 09/18/18 11:01 AST 34 U/L (17-59) 09/18/18 11:01 ALT 35 U/L (21-72) 09/18/18 11:01 Alkaline Phosphatase 451 U/L (38-126) H 09/18/18 11:01 C-Reactive Protein 241.9 mg/L (<10.0) H 09/20/18 08:12 Total Protein 5.6 g/dL (6.3-8.2) L 09/18/18 11:01 Albumin 2.5 g/dL (3.5-5.0) L 09/18/18 11:01 Microbiology 09/20/18 12:35 Urine,Voided Urine Culture - Preliminary 09/20/18 12:35 Shoulder - Right Fungal Culture - Preliminary 09/20/18 12:35 Shoulder - Right Wound Culture - Preliminary 09/20/18 12:35 Shoulder - Right Acid Fast Bacilli Culture - Preliminary 09/20/18 12:35 Shoulder - Right Anaerobic Culture - Preliminary 09/20/18 12:35 Shoulder - Right Fungal Culture - Preliminary 09/20/18 12:35 Shoulder - Right Tissue Culture - Preliminary 09/20/18 12:35 Shoulder - Right Anaerobic Culture - Preliminary 09/20/18 12:35 Shoulder - Right Fungal Culture - Preliminary 09/20/18 12:35 Shoulder - Right Wound Culture - Preliminary 09/20/18 12:35 Shoulder - Right Wound Culture - Preliminary 09/20/18 12:35 Shoulder - Right Anaerobic Culture - Preliminary 09/20/18 12:35 Shoulder - Right Anaerobic Culture - Preliminary 09/20/18 12:35 Shoulder - Right Fungal Culture - Preliminary 09/18/18 12:10 Blood Blood Culture - Preliminary No Growth after 48 hours Assessment and Plan (1) Shoulder pain, right Narrative/Plan: As related this very pleasant 73-year-old male has been followed in the office after his extensive right hand infection after his carpal tunnel surgery 15 year s ago. He is a very hard-working individual has had significant degenerative changes to his joints. He's had a prior left total shoulder which was done modestly well, but then had the severe sudden pain into his right shoulder. There is evidence of marked disease synovitis and possibility of septic arthritis. I had the pleasure of discussing the case with orthopedic team and they're planning an arthroscopic evaluation to the joint which point in time cultures for routine, AFB and fungus are requested. If this time vancomycin is being utilized as well as pain control. The patient understands that if septic arthritis is found he will be requiring a course of outpatient intravenous antib iotic therapy. The patient's respiratory symptoms are resolved, does have leukocytosis that at this time is much more likely related to infection rather than a post-steroid effect. CRP of 328 is highly suggestive of infection. 09/20/2018 patient is status post the arthroscopic debridement the shoulder. More multiple bony form bodies were removed with deep tissue cultures obtained. We'll continue current antibiotic therapy. Elevate the arm as much as tolerable to help with the chronic edema and swelling. If infection is found will be treated with a long course of antibiotic therapy. No infection is isolated may be a candidate for total shoulder arthroplasty in the near future. Current Visit: Yes Status: Acute Priority: Medium Code(s): M25.511 - PAIN IN RIGHT SHOULDER SNOMED Code(s): 25332833
[2018-09-21] MEDS ORDERED: VANCOMYCIN TROUGH DUE 1 EACH MISC MISCELLANE ONE (05:00)
[2018-09-21 05:58] LABS: HCT 32.1 % (39.0-53.0); HGB 10.1 gm/dL (13.0-17.5); Hypochromasia Slight; MCH 31.2 pg (25.0-35.0); MCHC 31.6 g/dL (31.0-37.0); MCV 98.8 fL (80.0-100.0); Mean Platelet Volume 7.3; Platelet Count 476 k/uL (150-450); RBC 3.25 m/uL (4.30-5.90); RDW 14.8 % (11.5-15.5); WBC 9.8 k/uL (3.8-10.6)
[2018-09-21 06:19] LABS: African American GFR (CKD) >90 (>60 ml/min/1.73 sqM); Anion Gap 3 mmol/L; Blood Urea Nitrogen 18 mg/dL (9-20); Calcium 8.2 mg/dL (8.4-10.2); Carbon Dioxide 30 mmol/L (22-30); Chloride 100 mmol/L (98-107); Glucose 113 mg/dL (74-99); Potassium 4.6 mmol/L (3.5-5.1); Sodium 133 mmol/L (137-145)
[2018-09-21] MEDS: VANCOMYCIN 1,750 MG in SODIUM CHLORIDE 0.9% 500 ML 500 ML IVPB SCH ×2 (06:25→21:09)
[2018-09-21] MEDS: HYDROcodone/APAP 5-325MG 1 EACH TAB PO PRN ×3 (06:27→18:55)
[2018-09-21] MEDS: DORZOLAMIDE HCL 2% DROPS 10 ML BTL LEFT EYE SCH ×2 (09:07→21:08)
[2018-09-21] MEDS: BRIMONIDINE TARTRATE 0.2% DROPS 5 ML BTL LEFT EYE SCH ×2 (09:07→21:08)
[2018-09-21] MEDS: FAMOTIDINE 20 MG TAB PO SCH ×2 (09:07→21:07)
--- NOTE | 2018-09-21 10:19 | P.PN ---
Subjective Progress Note Date: 09/21/18 Principal diagnosis: Right shoulder pain Patient is seen at bedside this morning. He is s/p arthroscopic I and D of his right shoulder POD #1. He has no new complaints. He continues with discomfort and swelling to RUE. He is denying fever or chills. He denies numbness or tingling. Objective - Vital Signs Vital signs: Vital Signs Temp 98.3 F 09/21/18 01:51 Pulse 74 09/21/18 01:51 Resp 18 09/21/18 01:51 BP 99/57 09/21/18 01:51 Pulse Ox 95 09/21/18 01:51 Intake & Output 09/20/18 09/21/18 09/21/18 18:59 06:59 18:59 Intake Total 1340 Output Total 270 Balance 1070 Weight 96.5 kg Intake: IV 1100 Oral 240 Output: Urine 250 Estimated Blood Loss 20 Other: Voiding Method Toilet Self-Catheterization # Voids 1 - Exam Surgical wounds are benign. No active bleeding. No signs of infection. His ROM of his RUE continues to be limited due to pain. There continues to be diffuse edema throughout RUE. Neurovascular status remains intact with pulse, motor and sensation throughout the RUE. - Constitutional General appearance: Present: no acute distress - Labs CBC & Chem 7: 09/21/18 05:38 09/21/18 05:38 Labs: Abnormal Lab Results - Last 24 Hours (Table) 09/20/18 09/20/18 09/21/18 Range/Units 08:12 08:12 05:38 RBC (4.30-5.90) m/uL Hgb (13.0-17.5) gm/dL Hct (39.0-53.0) % Plt Count (150-450) k/uL ESR 109 H (0-15) mm/hr Sodium 133 L (137-145) mmol/L Glucose 113 H (74-99) mg/dL Calcium 8.2 L (8.4-10.2) mg/dL C-Reactive Protein 241.9 H (<10.0) mg/L 09/21/18 Range/Units 05:38 RBC 3.25 L (4.30-5.90) m/uL Hgb 10.1 L (13.0-17.5) gm/dL Hct 32.1 L (39.0-53.0) % Plt Count 476 H (150-450) k/uL ESR (0-15) mm/hr Sodium (137-145) mmol/L Glucose (74-99) mg/dL Calcium (8.4-10.2) mg/dL C-Reactive Protein (<10.0) mg/L Microbiology - Last 24 Hours (Table) 09/20/18 12:35 Gram Stain - Preliminary Shoulder - Right Wound Culture - Preliminary 09/20/18 12:35 Gram Stain - Preliminary Shoulder - Right Wound Culture - Preliminary 09/20/18 12:35 Gram Stain - Preliminary Shoulder - Right Tissue Culture - Preliminary 09/20/18 12:35 Acid Fast Bacilli Smear - Final Shoulder - Right Acid Fast Bacilli Culture - Preliminary 09/20/18 12:35 Gram Stain - Preliminary Shoulder - Right Wound Culture - Preliminary 09/20/18 12:35 Urine Culture - Preliminary Urine,Voided 09/20/18 12:35 Fungal Culture - Preliminary Shoulder - Right 09/20/18 12:35 Anaerobic Culture - Preliminary Shoulder - Right 09/20/18 12:35 Fungal Culture - Preliminary Shoulder - Right 09/20/18 12:35 Anaerobic Culture - Preliminary Shoulder - Right 09/20/18 12:35 Fungal Culture - Preliminary Shoulder - Right 09/20/18 12:35 Anaerobic Culture - Preliminary Shoulder - Right 09/20/18 12:35 Anaerobic Culture - Preliminary Shoulder - Right 09/20/18 12:35 Fungal Culture - Preliminary Shoulder - Right 09/18/18 12:10 Blood Culture - Preliminary Blood No Growth after 48 hours Assessment and Plan (1) Shoulder pain, right Narrative/Plan: Cultures from I and D of right shoulder are pending. His WBC and CRP are improved today. Continue IV antibiotics. Continue elevation of RUE. Continue pain management. Appreciate IM and ID assistance in recommendations and care. We will continue to monitor and make further recommendations pending his clinical course. Current Visit: Yes Status: Acute Priority: Medium Code(s): M25.511 - PAIN IN RIGHT SHOULDER SNOMED Code(s): 82097109 Time with Patient: Less than 30
--- NOTE | 2018-09-21 12:40 | P.PN ---
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 possibly of septic arthritis is low but it was not ruled out patient is on empiric vancomycin and infectious disease will evaluate the patient and patient does have leukocytosis which is improving at this time. Swelling of the right arm and shoulder is actually better today 09/20/2018 Patient will go for incision and drainage today 09/21/2018 Patient underwent incision and drainage yesterday does not appear to have infection, does have severe inflammation from my degenerative joint disease and significant rotator cuff disease. Further management as per primary service antibiotics as per infectious disease awaiting cultures from the synovial fluid can use to have swelling still complaining of severe pain Constitutional: Denied any fatigue denied any fever. Cardio vascular: denied any chest pain, palpitations Gastrointestinal denied any nausea vomiting Pulmonary: Denied any shortness of breath cough Neurologic denied any new focal deficits All inpatient medications were reviewed and appropriate changes in these medications as dictated in the interval history and assessment and plan. Objective - Vital Signs Vital signs: Vital Signs Temp 98.3 F 09/21/18 01:51 Pulse 74 09/21/18 01:51 Resp 18 09/21/18 01:51 BP 99/57 09/21/18 01:51 Pulse Ox 95 09/21/18 01:51 Intake & Output 09/20/18 09/21/18 09/21/18 18:59 06:59 18:59 Intake Total 1340 240 Output Total 270 Balance 1070 240 Weight 96.5 kg Intake: IV 1100 Oral 240 240 Output: Urine 250 Estimated Blood Loss 20 Other: Voiding Method Toilet Self-Catheterization # Voids 1 - Exam PHYSICAL EXAMINATION: GENERAL: The patient is alert and oriented x3, not in any acute distress. Well developed, well nourished. HEENT: Pupils are round and equally reacting to light. EOMI. No scleral icterus. No conjunctival pallor. Normocephalic, atraumatic. No pharyngeal erythema. No thyromegaly. CARDIOVASCULAR: S1 and S2 present. No murmurs, rubs, or gallops. PULMONARY: Chest is clear to auscultation, no wheezing or crackles. ABDOMEN: Soft, nontender, nondistended, normoactive bowel sounds. No palpable organomegaly. MUSCULOSKELETAL: As mentioned above EXTREMITIES: No cyanosis, clubbing, or pedal edema. NEUROLOGICAL: Gross neurological examination did not reveal any focal deficits. SKIN: No rashes. - Labs CBC & Chem 7: 09/21/18 05:38 09/21/18 05:38 Labs: Abnormal Lab Results - Last 24 Hours (Table) 09/21/18 09/21/18 Range/Units 05:38 05:38 RBC 3.25 L (4.30-5.90) m/uL Hgb 10.1 L (13.0-17.5) gm/dL Hct 32.1 L (39.0-53.0) % Plt Count 476 H (150-450) k/uL Sodium 133 L (137-145) mmol/L Glucose 113 H (74-99) mg/dL Calcium 8.2 L (8.4-10.2) mg/dL Microbiology - Last 24 Hours (Table) 09/20/18 12:35 Gram Stain - Preliminary Shoulder - Right Wound Culture - Preliminary 09/20/18 12:35 Gram Stain - Preliminary Shoulder - Right Wound Culture - Preliminary 09/20/18 12:35 Gram Stain - Preliminary Shoulder - Right Tissue Culture - Preliminary 09/20/18 12:35 Acid Fast Bacilli Smear - Final Shoulder - Right Acid Fast Bacilli Culture - Preliminary 09/20/18 12:35 Gram Stain - Preliminary Shoulder - Right Wound Culture - Preliminary 09/20/18 12:35 Urine Culture - Preliminary Urine,Voided 09/20/18 12:35 Fungal Culture - Preliminary Shoulder - Right 09/20/18 12:35 Anaerobic Culture - Preliminary Shoulder - Right 09/20/18 12:35 Fungal Culture - Preliminary Shoulder - Right 09/20/18 12:35 Anaerobic Culture - Preliminary Shoulder - Right 09/20/18 12:35 Fungal Culture - Preliminary Shoulder - Right 09/20/18 12:35 Anaerobic Culture - Preliminary Shoulder - Right 09/20/18 12:35 Anaerobic Culture - Preliminary Shoulder - Right 09/20/18 12:35 Fungal Culture - Preliminary Shoulder - Right 09/18/18 12:10 Blood Culture - Preliminary Blood No Growth after 48 hours Assessment and Plan Plan: -Right shoulder pain: Possibility of severe inflammation of the right shoulder area and infection although infection cannot be completely ruled out further management with vancomycin. Patient mostly appears to have avascular necrosis of the humerus along with the rotator cuff tear. Infectious disease evaluated the patient. patient underwent incision and drainage possibility of infection is low and the patient is on antibiotics -Leukocytosis: secondary to either infection or reactive from the inflammation, improving -Hypertension: Monitor blood pressure hold off amlodipine for now. Let pressure remains low normal -DVT prophylaxis per primary service.
[2018-09-21] MEDS: TAMSULOSIN 0.4 MG CAP.ER.24H PO SCH (21:07)
[2018-09-21] MEDS: LATANOPROST 0.005% OPHTH DROPS 2.5 ML BTL BOTH EYES SCH (21:09)
[2018-09-22] MEDS: HYDROcodone/APAP 5-325MG 1 EACH TAB PO PRN ×4 (04:55→23:42)
[2018-09-22 07:20] LABS: African American GFR (CKD) >90 (>60 ml/min/1.73 sqM); Anion Gap 6 mmol/L; Blood Urea Nitrogen 18 mg/dL (9-20); Calcium 8.5 mg/dL (8.4-10.2); Carbon Dioxide 28 mmol/L (22-30); Chloride 100 mmol/L (98-107); Glucose 146 mg/dL (74-99); Potassium 4.6 mmol/L (3.5-5.1); Sodium 134 mmol/L (137-145)
--- NOTE | 2018-09-22 07:38 | P.PN ---
Subjective Progress Note Date: 09/22/18 Principal diagnosis: Right shoulder pain Patient is seen at bedside this morning. He is s/p arthroscopic I and D of his right shoulder POD #1. He has no new complaints. His discomfort and swelling to his RUE is improved this morning. He is denying fever or chills. He denies numbn ess or tingling. Objective - Vital Signs Vital signs: Vital Signs Temp 98.1 F 09/22/18 03:05 Pulse 75 09/22/18 03:05 Resp 17 09/22/18 03:05 BP 152/80 09/22/18 03:05 Pulse Ox 94 L 09/22/18 03:05 Intake & Output 09/21/18 09/22/18 09/22/18 18:59 06:59 18:59 Intake Total 462 820 Balance 462 820 Intake: Oral 462 820 Other: Voiding Method Toilet Self-Catheterization # Voids 1 1 - Exam Surgical wounds are benign. No active bleeding. No signs of infection. His ROM of his RUE continues to be limited due to pain but it is improved this morning. There is improved edema throughout RUE and hand. Neurovascular status remains intact with pulse, motor and sensation throughout the RUE. - Constitutional General appearance: Present: no acute distress - Labs CBC & Chem 7: 09/21/18 05:38 09/22/18 06:29 Labs: Abnormal Lab Results - Last 24 Hours (Table) 09/22/18 Range/Units 06:29 Sodium 134 L (137-145) mmol/L Glucose 146 H (74-99) mg/dL Microbiology - Last 24 Hours (Table) 09/20/18 12:35 Urine Culture - Final Urine,Voided 09/18/18 12:10 Blood Culture - Preliminary Blood No Growth after 72 hours 09/20/18 12:35 Gram Stain - Preliminary Shoulder - Right Wound Culture - Preliminary 09/20/18 12:35 Gram Stain - Preliminary Shoulder - Right Wound Culture - Preliminary 09/20/18 12:35 Gram Stain - Preliminary Shoulder - Right Wound Culture - Preliminary 09/20/18 12:35 Gram Stain - Preliminary Shoulder - Right Tissue Culture - Preliminary 09/20/18 12:35 Acid Fast Bacilli Smear - Final Shoulder - Right Acid Fast Bacilli Culture - Preliminary Assessment and Plan (1) Shoulder pain, right Narrative/Plan: Clinically he appears to be improving. Cultures from I and D of right shoulder are essentially negative thus far.. His WBC and CRP have improved. He is afebrile and his ROM swelling has improved some this morning. Continue IV antibiotics. Continue elevation of RUE. Continue pain management. Appreciate IM and ID assistance in recommendations and care. We will continue to monitor and make further recommendations pending his clinical course. Current Visit: Yes Status: Acute Priority: Medium Code(s): M25.511 - PAIN IN RIGHT SHOULDER SNOMED Code(s): 17141670 Time with Patient: Less than 30
[2018-09-22] MEDS: oxyCODONE ER 10 MG TAB.ER.12H PO SCH ×2 (09:18→20:21)
[2018-09-22] MEDS: FAMOTIDINE 20 MG TAB PO SCH ×2 (09:18→20:22)
[2018-09-22] MEDS: DORZOLAMIDE HCL 2% DROPS 10 ML BTL LEFT EYE SCH ×2 (09:19→20:21)
[2018-09-22] MEDS: BRIMONIDINE TARTRATE 0.2% DROPS 5 ML BTL LEFT EYE SCH ×2 (09:20→20:21)
[2018-09-22] MEDS: VANCOMYCIN 1,750 MG in SODIUM CHLORIDE 0.9% 500 ML 500 ML IVPB SCH (13:33)
--- NOTE | 2018-09-22 13:43 | P.PN ---
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 possibly of septic arthritis is low but it was not ruled out patient is on empiric vancomycin and infectious disease will evaluate the patient and patient does have leukocytosis which is improving at this time. Swelling of the right arm and shoulder is actually better today 09/20/2018 Patient will go for incision and drainage today 09/21/2018 Patient underwent incision and drainage yesterday does not appear to have infection, does have severe inflammation from my degenerative joint disease and significant rotator cuff disease. Further management as per primary service antibiotics as per infectious disease awaiting cultures from the synovial fluid can use to have swelling still complaining of severe pain 09/22/2018 Patient's swelling is better but still has significant swelling. There is no evidence of infection. Patient may have reflex sympathetic dystrophy or complex regional pain syndrome 2 from sympathetic nerve damage.. May benefit from pain management as an outpatient. Constitutional: Denied any fatigue denied any fever. Cardio vascular: denied any chest pain, palpitations Gastrointestinal denied any nausea vomiting Pulmonary: Denied any shortness of breath cough Neurologic denied any new focal deficits All inpatient medications were reviewed and appropriate changes in these medications as dictated in the interval history and assessment and plan. Objective - Vital Signs Vital signs: Vital Signs Temp 98.1 F 09/22/18 07:10 Pulse 79 09/22/18 07:10 Resp 16 09/22/18 09:30 BP 109/53 09/22/18 07:10 Pulse Ox 96 09/22/18 07:10 Intake & Output 09/21/18 09/22/18 09/22/18 18:59 06:59 18:59 Intake Total 462 820 Balance 462 820 Intake: Oral 462 820 Other: Voiding Method Toilet Toilet Self-Catheterization Self-Catheterization # Voids 1 1 1 - Exam PHYSICAL EXAMINATION: GENERAL: The patient is alert and oriented x3, not in any acute distress. Well developed, well nourished. HEENT: Pupils are round and equally reacting to light. EOMI. No scleral icterus. No conjunctival pallor. Normocephalic, atraumatic. No pharyngeal erythema. No thyromegaly. CARDIOVASCULAR: S1 and S2 present. No murmurs, rubs, or gallops. PULMONARY: Chest is clear to auscultation, no wheezing or crackles. ABDOMEN: Soft, nontender, nondistended, normoactive bowel sounds. No palpable organomegaly. MUSCULOSKELETAL: As mentioned above EXTREMITIES: No cyanosis, clubbing, or pedal edema. Right arm edema and redness is bit better compared to yesterday., Can use to have significant amount of pain. NEUROLOGICAL: Gross neurological examination did not reveal any focal deficits. SKIN: No rashes. - Labs CBC & Chem 7: 09/21/18 05:38 09/22/18 06:29 Labs: Abnormal Lab Results - Last 24 Hours (Table) 09/22/18 Range/Units 06:29 Sodium 134 L (137-145) mmol/L Glucose 146 H (74-99) mg/dL Microbiology - Last 24 Hours (Table) 09/20/18 12:35 Anaerobic Culture - Preliminary Shoulder - Right 09/20/18 12:35 Anaerobic Culture - Preliminary Shoulder - Right 09/20/18 12:35 Anaerobic Culture - Preliminary Shoulder - Right 09/20/18 12:35 Anaerobic Culture - Preliminary Shoulder - Right 09/20/18 12:35 Urine Culture - Final Urine,Voided 09/18/18 12:10 Blood Culture - Preliminary Blood No Growth after 72 hours 09/20/18 12:35 Gram Stain - Preliminary Shoulder - Right Wound Culture - Preliminary 09/20/18 12:35 Gram Stain - Preliminary Shoulder - Right Wound Culture - Preliminary Assessment and Plan Plan: -Right shoulder pain: Possibility of severe inflammation of the right shoulder area and infection although infection cannot be completely ruled out further m anagement with vancomycin. Patient mostly appears to have avascular necrosis of the humerus along with the rotator cuff tear. Infectious disease evaluated the patient. patient underwent incision and drainage possibility of infection is low and the patient is on antibiotics patient remains on antibiotics and patient does have elevated CRP in spite of which I do not believe patient has infection. Patient may have reflex sympathetic dystrophy from significant sympathetic nerve damage from osteoarthritis can you with Toradol and pain management medications as mentioned above -Leukocytosis: secondary to either infection or reactive from the inflammation, improving, pain management as an outpatient -Hypertension: Monitor blood pressure hold off amlodipine for now. Let pressure remains low normal -DVT prophylaxis per primary service.
[2018-09-22] MEDS: LATANOPROST 0.005% OPHTH DROPS 2.5 ML BTL BOTH EYES SCH (20:20)
[2018-09-22] MEDS: TAMSULOSIN 0.4 MG CAP.ER.24H PO SCH (20:21)
[2018-09-23] MEDS: HYDROcodone/APAP 5-325MG 1 EACH TAB PO PRN ×2 (05:43→11:34)
[2018-09-23] MEDS: VANCOMYCIN 1,750 MG in SODIUM CHLORIDE 0.9% 500 ML 500 ML IVPB SCH (05:44)
[2018-09-23 07:21] VITALS: RESP 18
[2018-09-23] MEDS: oxyCODONE ER 10 MG TAB.ER.12H PO SCH (08:11)
[2018-09-23] MEDS: FAMOTIDINE 20 MG TAB PO SCH (08:11)
[2018-09-23] MEDS: BRIMONIDINE TARTRATE 0.2% DROPS 5 ML BTL LEFT EYE SCH (08:12)
[2018-09-23] MEDS: DORZOLAMIDE HCL 2% DROPS 10 ML BTL LEFT EYE SCH (08:12)
[2018-09-23 08:35] LABS: African American GFR (CKD) >90 (>60 ml/min/1.73 sqM)
--- NOTE | 2018-09-23 12:50 | P.PN ---
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 possibly of septic arthritis is low but it was not ruled out patient is on empiric vancomycin and infectious disease will evaluate the patient and patient does have leukocytosis which is improving at this time. Swelling of the right arm and shoulder is actually better today 09/20/2018 Patient will go for incision and drainage today 09/21/2018 Patient underwent incision and drainage yesterday does not appear to have infection, does have severe inflammation from my degenerative joint disease and significant rotator cuff disease. Further management as per primary service antibiotics as per infectious disease awaiting cultures from the synovial fluid can use to have swelling still complaining of severe pain 09/22/2018 Patient's swelling is better but still has significant swelling. There is no evidence of infection. Patient may have reflex sympathetic dystrophy or complex regional pain syndrome 2 from sympathetic nerve damage.. May benefit from pain management as an outpatient. 09/23/2018 Patient swelling significant improved pain improved. Constitutional: Denied any fatigue denied any fever. Cardio vascular: denied any chest pain, palpitations Gastrointestinal denied any nausea vomiting Pulmonary: Denied any shortness of breath cough Neurologic denied any new focal deficits All inpatient medications were reviewed and appropriate changes in these medications as dictated in the interval history and assessment and plan. Objective - Vital Signs Vital signs: Vital Signs Temp 98.0 F 09/23/18 07:04 Pulse 92 09/23/18 07:04 Resp 18 09/23/18 07:04 BP 110/60 09/23/18 07:04 Pulse Ox 92 L 09/23/18 07:04 Intake & Output 09/22/18 09/23/18 09/23/18 18:59 06:59 18:59 Intake Total 1140 200 120 Balance 1140 200 120 Intake: Intake, IV Titration 500 Amount Vancomycin 1,750 mg In 500 Sodium Chloride 0.9% 500 ml 500 ml @ 167 mls/hr IVPB Q16H [facility] Rx#: [id number] Oral 640 200 120 Other: Voiding Method Toilet Toilet Self-Catheterization Self-Catheterization # Voids 1 1 1 - Exam PHYSICAL EXAMINATION: GENERAL: The patient is alert and oriented x3, not in any acute distress. Well developed, well nourished. HEENT: Pupils are round and equally reacting to light. EOMI. No scleral icterus. No conjunctival pallor. Normocephalic, atraumatic. No pharyngeal erythema. No thyromegaly. CARDIOVASCULAR: S1 and S2 present. No murmurs, rubs, or gallops. PULMONARY: Chest is clear to auscultation, no wheezing or crackles. ABDOMEN: Soft, nontender, nondistended, normoactive bowel sounds. No palpable organomegaly. MUSCULOSKELETAL: As mentioned above EXTREMITIES: No cyanosis, clubbing, or pedal edema. Right arm edema improved redness resolved. NEUROLOGICAL: Gross neurological examination did not reveal any focal deficits. SKIN: No rashes. - Labs CBC & Chem 7: 09/21/18 05:38 09/23/18 07:20 Labs: Microbiology - Last 24 Hours (Table) 09/20/18 12:35 Gram Stain - Preliminary Shoulder - Right Wound Culture - Preliminary Strep pyogenes (grp a) 09/20/18 12:35 Gram Stain - Preliminary Shoulder - Right Wound Culture - Preliminary Strep pyogenes (grp a) 09/20/18 12:35 Gram Stain - Preliminary Shoulder - Right Wound Culture - Preliminary Strep pyogenes (grp a) 09/20/18 12:35 Gram Stain - Preliminary Shoulder - Right Tissue Culture - Preliminary Strep pyogenes (grp a) 09/18/18 12:10 Blood Culture - Preliminary Blood No Growth after 96 hours 09/20/18 12:35 Anaerobic Culture - Preliminary Shoulder - Right 09/20/18 12:35 Anaerobic Culture - Preliminary Shoulder - Right 09/20/18 12:35 Anaerobic Culture - Preliminary Shoulder - Right 09/20/18 12:35 Anaerobic Culture - Preliminary Shoulder - Right Assessment and Plan Plan: -Right shoulder pain: Possibility of severe inflammation of the right shoulder area and possibility of infection is low Patient mostly appears to have avascular necrosis of the humerus along with the rotator cuff tear. Infectious disease evaluated the patient. patient underwent incision and drainage possibility of infection is low and the p Patient may have reflex sympathetic dystrophy from significant sympathetic nerve damage from osteoarthritis can you with Toradol and pain management medications as mentioned above -Leukocytosis: r reactive from the inflammation, improving, pain management as an outpatient -Hypertension: Patient will not require hydrocodone thiazide this will be discontinued upon discharge -
[2018-09-23] MEDS ORDERED: LIDOCAINE 1% INJ 10MG/ML (20 ML MDV) SQ ONE (14:59)
[2018-09-23 15:22] VITALS: BP 154/87; PULSE 90; TEMP 98.3
--- NOTE | 2018-09-23 16:18 | IR ---
EXAMINATION TYPE: IR cvc insert >=5 years DATE OF EXAM: 09/23/2018 COMPARISON: NONE CLINICAL HISTORY: Infection Needs long-term intravenous access for antibiotics. PROCEDURE: After informed consent, the skin overlying the left basilic vein was localized with ultrasound and no james to be compressible and patent. An ultrasound image was obtained and submitted on the patient's c crocker. The overlying skin was prepped and draped and Lidocaine was used for local anesthesia. A skin faby was made with a scalpel. Access was gained to the vein under ultrasound guidance with a 21 gau ge needle and a 0.018 inch wire was advanced. Access site was dilated with Peel-Away sheath and cath eter tailored to the appropriate length and advanced such that the distal tip is at the cavoatrial ju nction. Spot image was obtained verifying placement. Catheter was fixed to the skin and a sterile d ressing was placed following hemostasis. Catheter was aspirated and flushed with saline. Patient wa s discharged in stable condition without complication.Maximal barrier technique is utilized. Ultraso und image is documented on the chart. Ultrasound used with sterile technique. Fluoro time and fluoroscopic images submitted to document procedure: 0.1 minutes fluoroscopy time, 19 intraoperative images document the procedure IMPRESSION: STATUS POST ULTRASOUND AND FLUOROSCOPIC GUIDED PICC LINE PLACEMENT, READY FOR USE. THIS PROCEDURE WAS PERFORMED BY THE UNDERSIGNED.
--- NOTE | 2018-09-25 11:43 | CDI ---
Documentation Clarification Form Date: 09/25/2018 From: Vero Craig Phone: If questions call Laura Carbajal @ [phone], Hours-8:30 am & 5 pm M- F Admit Date: 09/18/2018 10:09:00 AM Patient Name: Ahmet Maldonado Visit Number: [id number] Discharge Date: 09/23/2018 4:01:00 PM ATTENTION: The Clinical Documentation Specialists (CDI) and [facility] Coding Staff appreciate your assistance in clarifying documentation. Please respond to the clarification below the line at the bottom and electronically sign. The CDI & [facility] Coding staff will review the response and follow-up if needed. Please note: Queries are made part of the Legal Health Record. If you have any questions, please contact the author of this message via ITS. Dr. Berto White The diagnosis possible septic arthritis was documented in the record , but is not consistently noted in subsequent documentation. History/Risk Factors: erosive OA of R shoulder, Rt torn rotator cuff, avascular necrosis of R shoulder Clinical Indicators: Strept pyogenes (grp a) grew from surgical culture Treatment: IV Vanco switched to IV Rocephin, line placed and discharged home on IV antibiotics Please clarify if the septic arthritis was: Present/active/treated this admission Ruled out Other, please specify Clinically unable to determine MTDD
--- NOTE | 2018-09-25 11:49 | CDI ---
Documentation Clarification Form Date: 09/25/2018 From: Vero Craig Phone: If questions call Laura Carbajal @ [phone], Hours-8:30 am & 5 pm Edwina Demarco Admit Date: 09/18/2018 10:09:00 AM Patient Name: Ahmet Maldonado Visit Number: [id number] Discharge Date: 09/23/2018 4:01:00 PM ATTENTION: The Clinical Documentation Specialists (CDI) and [facility] Coding Staff appreciate your assistance in clarifying documentation. Please respond to the clarification below the line at the bottom and electronically sign. The CDI & [facility] Coding staff will review the response and follow-up if needed. Please note: Queries are made part of the Legal Health Record. If you have any questions, please contact the author of this message via ITS. Dr. Berto White Per your progress notes/operative note, a debridement was performed on 09/20. History/Risk Factors: avascular necrosis R shoulder, torn rotator cuff R shoulder Treatment: Arthroscopic debridement with arthroscopic shaver debrided synovial tissue, loose labral tissue & the greater tuberosity Five elements required for accurate and compliant documentation of a debridement: 1. Technique used (e.g., excisional, excised, cutting, etc.) 2. Instrument(s) used (e.g., scalpel, curette, etc.) 3. Nature of the tissue removed (e.g., necrotic, devitalized tissues, non- viable tissue, etc.) 4. Appearance and size of the wound (e.g., down to fresh bleeding tissue, 7cm x 10cm, etc.) 5. Depth of the debridement* (e.g., skin, subcutaneous tissue, fascia, muscle, bone, etc.) In order to capture the severity of condition and code the appropriate procedure; could you please document the following: Excisional debridement (the removal of necrotic, devitalized tissue or slough by means of cutting away of tissue) Non-excisional debridement (the removal of necrotic, devitalized tissue or slough by means of flushing, brushing, or washing. (Irrigation) Other; please specify Unable to determine MTDD
--- NOTE | 2018-09-25 12:24 | P.DS ---
Providers Date of admission: 09/18/18 10:09 Expected date of discharge: 09/23/18 Attending physician: Berto White Consults: 09/18/18 10:44 Consult Physician Stat Consulting Provider: Justice Cesar Consult Reason/Comments: right upper extremity infection/sepsis? Do you want consulting provider notified?: Yes Consult Physician Stat Consulting Provider: Ema Torres Consult Reason/Comments: medical management/sepsis? Do you want consulting provider notified?: Yes 09/22/18 17:12 Consult Physician Routine Consulting Provider: [facility] Consult Reason/Comments: Pain management Do you want consulting provider notified?: Yes Primary care physician: Trace Rebolledo - Discharge Diagnosis(es) (1) Shoulder pain, right Patient was admitted to hospital on 09/19/18 for suspicion of septic right shoulder. On 09/20/18 he underwent arthroscopic I and D where cultures were obtained. Cultures grew S. Pyogenes and he has been managed on IV antiobiotics and will continue per Dr. Cesar service. Postoperative hospital course has remained without complication. On day of discharge he is afebrile, vital signs stable, tolerating by mouth meds and diet, voiding without difficulty, positive flatus, denies abdominal pain or calf pain, pain is controlled on oral pain medication and has no new complaints. Wound is benign, neurovascular status is intact, calf is soft and nontender, abdomen soft and nontender. Review of systems is negative for numbness, tingling, fever, chills, chest pain, shortness of breath, nausea, vomiting, dizziness, headaches, slurred speech or other. Status: Acute Priority: Medium Patient Condition at Discharge: Fair Plan - Discharge Summary New Discharge Prescriptions: New cefTRIAXone [Rocephin] 2,000 mg IVPB Q24HR #42 vial Docusate [Colace] 100 mg PO BID #60 capsule HYDROcodone/APAP 7.5-325MG [[place] 7.5-325] 1 - 2 each PO Q6HR PRN #56 tab PRN Reason: Pain RX: oxyCODONE ER [OxyCONTIN] 10 mg PO Q12HR 5 Days #10 tab Discontinued RX: Hydrochlorothiazide 25 mg PO DAILY No Action Tamsulosin HCl [Flomax] 0.4 mg PO HS Dorzolamide HCl/Pf [Dorzolamide 2% Eye Drop] 1 drop LEFT EYE BID Diclofenac Sodium [Voltaren] 75 mg PO BID Bimatoprost [Lumigan .01% Ophth Soln] 1 drop BOTH EYES HS Brimonidine Tartrate [Alphagan P 0.2% Ophth Soln] 1 drops LEFT EYE BID Discharge Medication List Bimatoprost [[place]umigan .01% Ophth Soln] 1 drop BOTH EYES HS 09/18/18 [History] Brimonidine Tartrate [Alphagan P 0.2% Ophth Soln] 1 drops LEFT EYE BID 09/18/18 [History] Diclofenac Sodium [Voltaren] 75 mg PO BID 09/18/18 [History] Dorzolamide HCl/Pf [Dorzolamide 2% Eye Drop] 1 drop LEFT EYE BID 09/18/18 [History] Tamsulosin HCl [Flomax] 0.4 mg PO HS 09/18/18 [History] Docusate [Colace] 100 mg PO BID #60 capsule 09/23/18 [Rx] HYDROcodone/APAP 7.5-325MG [[place] 7.5-325] 1 - 2 each PO Q6HR PRN #56 tab 09/23/18 [Rx] RX: oxyCODONE ER [OxyCONTIN] 10 mg PO Q12HR 5 Days #10 tab 09/23/18 [Rx] cefTRIAXone [Rocephin] 2,000 mg IVPB Q24HR #42 vial 09/23/18 [Rx] Follow up Appointment(s)/Referral(s): Justice Cesar MD [STAFF PHYSICIAN] - 10/16/18 1:30 pm [facility], [NON-STAFF] - As Needed [facility], [REFERRING] - As Needed Berto White MD [STAFF PHYSICIAN] - 09/30/18 2:30 pm Ambulatory/Diagnostic Orders: Basic Metabolic Panel [LAB.AMB] Location: None Selected C Reactive Protein [LAB.AMB] Location: None Selected Complete Blood Count w/diff [LAB.AMB] Location: None Selected Erythrocyte Sedimentation Rate [LAB.AMB] Location: None Selected Patient Instructions/Handouts: Peripherally Inserted Central Catheters and Midline Catheters (DC) Activity/Diet/Wound Care/Special Instructions: Keep wounds clean and dry take meds as directed f/u with Dr. White in office for suture removal and recheck Activity as tolerated Discharge Disposition: HOME WITH HOME HEALTH SERVICES
--- NOTE | 2018-09-30 13:18 | CDI ---
Documentation Clarification Form Date: 09/25/2018 From: Vero Craig Phone: If questions call Larua Carbajal @ [phone], Hours-8:30 am & 5 pm M- F Admit Date: 09/18/2018 10:09:00 AM Patient Name: Ahmet Maldonado Visit Number: [id number] Discharge Date: 09/23/2018 4:01:00 PM ATTENTION: The Clinical Documentation Specialists (CDI) and [facility] Coding Staff appreciate your assistance in clarifying documentation. Please respond to the clarification below the line at the bottom and electronically sign. The CDI & [facility] Coding staff will review the response and follow-up if needed. Please note: Queries are made part of the Legal Health Record. If you have any questions, please contact the author of this message via ITS. Dr. Berto White The diagnosis possible septic arthritis was documented in the record , but is not consistently noted in subsequent documentation. History/Risk Factors: erosive OA of R shoulder, Rt torn rotator cuff, avascular necrosis of R shoulder Clinical Indicators: Strept pyogenes (grp a) grew from surgical culture Treatment: IV Vanco switched to IV Rocephin, line placed and discharged home on IV antibiotics Please clarify if the septic arthritis was: Present/active/treated this admission Ruled out Other, please specify Clinically unable to determine MTDD
--- NOTE | 2018-09-30 13:20 | CDI ---
Documentation Clarification Form Date: 09/25/2018 11:46:00 AM From: Vero Craig Phone: Admit Date: 09/18/2018 10:09:00 AM Patient Name: Ahmet Maldonado Visit Number: [id number] Discharge Date: 09/23/2018 4:01:00 PM ATTENTION: The Clinical Documentation Specialists (CDI) and [facility] Coding Staff appreciate your assistance in clarifying documentation. Please respond to the clarification below the line at the bottom and electronically sign. The CDI & [facility] Coding staff will review the response and follow-up if needed. Please note: Queries are made part of the Legal Health Record. If you have any questions, please contact the author of this message via ITS. Dr. Berto White Per your progress notes/operative note, a debridement was performed on 09/20. History/Risk Factors: avascular necrosis of R shoulder, torn rotator cuff R shoulder Treatment: Arthroscopic debridement with arthroscopic shaver debrided synovial tissue, loose labral tissue & the greater tuberosity Five elements required for accurate and compliant documentation of a debridement: 1. Technique used (e.g., excisional, excised, cutting, etc.) 2. Instrument(s) used (e.g., scalpel, curette, etc.) 3. Nature of the tissue removed (e.g., necrotic, devitalized tissues, non- viable tissue, etc.) 4. Appearance and size of the wound (e.g., down to fresh bleeding tissue, 7cm x 10cm, etc.) 5. Depth of the debridement* (e.g., skin, subcutaneous tissue, fascia, muscle, bone, etc.) In order to capture the severity of condition and code the appropriate procedure; could you please document the following: Excisional debridement (the removal of necrotic, devitalized tissue or slough by means of cutting away of tissue) Non-excisional debridement (the removal of necrotic, devitalized tissue or slough by means of flushing, brushing, or washing. (Irrigation) Other; please specify Unable to determine (Last Revision: May 2017) MTDD
--- NOTE | 2018-10-10 12:44 | CDI ---
Documentation Clarification Form Date: 09/25/2018 From: Vero Craig Phone: If questions call Laura Carbajal @ [phone], Hours-8:30 am & 5 pm M- F Admit Date: 09/18/2018 10:09:00 AM Patient Name: Ahmet Maldonado Visit Number: [id number] Discharge Date: 09/23/2018 4:01:00 PM ATTENTION: The Clinical Documentation Specialists (CDI) and [facility] Coding Staff appreciate your assistance in clarifying documentation. Please respond to the clarification below the line at the bottom and electronically sign. The CDI & [facility] Coding staff will review the response and follow-up if needed. Please note: Queries are made part of the Legal Health Record. If you have any questions, please contact the author of this message via ITS. Dr. Berto White The diagnosis possible septic arthritis was documented in the record , but is not consistently noted in subsequent documentation. History/Risk Factors: erosive OA of R shoulder, Rt torn rotator cuff, avascular necrosis of R shoulder Clinical Indicators: Strept pyogenes (grp a) grew from surgical culture Treatment: IV Vanco switched to IV Rocephin, line placed and discharged home on IV antibiotics Please clarify if the septic arthritis was: Present/active/treated this admission Ruled out Other, please specify Clinically unable to determine MTDD
--- NOTE | 2018-10-10 12:46 | CDI ---
Documentation Clarification Form Date: 09/25/2018 From: Vero Craig Phone: If questions call Laura Carbajal @ [phone], Hours-8:30 am & 5 pm Edwina Demarco Admit Date: 09/18/2018 10:09:00 AM Patient Name: Ahmet Maldonado Visit Number: [id number] Discharge Date: 09/23/2018 4:01:00 PM ATTENTION: The Clinical Documentation Specialists (CDI) and [facility] Coding Staff appreciate your assistance in clarifying documentation. Please respond to the clarification below the line at the bottom and electronically sign. The CDI & [facility] Coding staff will review the response and follow-up if needed. Please note: Queries are made part of the Legal Health Record. If you have any questions, please contact the author of this message via ITS. Dr. Berto White Per your progress notes/operative note, a debridement was performed on 09/20. History/Risk Factors: avascular necrosis of R shoulder, torn rotator cuff R shoulder Treatment: Arthroscopic debridement with arthroscopic shaver debrided synovial tissue, loose labral tissue & the greater tuberosity Five elements required for accurate and compliant documentation of a debridement: 1. Technique used (e.g., excisional, excised, cutting, etc.) 2. Instrument(s) used (e.g., scalpel, curette, etc.) 3. Nature of the tissue removed (e.g., necrotic, devitalized tissues, non- viable tissue, etc.) 4. Appearance and size of the wound (e.g., down to fresh bleeding tissue, 7cm x 10cm, etc.) 5. Depth of the debridement* (e.g., skin, subcutaneous tissue, fascia, muscle, bone, etc.) In order to capture the severity of condition and code the appropriate procedure; could you please document the following: Excisional debridement (the removal of necrotic, devitalized tissue or slough by means of cutting away of tissue) Non-excisional debridement (the removal of necrotic, devitalized tissue or slough by means of flushing, brushing, or washing. (Irrigation) Other; please specify Unable to determine MTDD
--- NOTE | 2018-10-17 06:35 | CDI ---
Documentation Clarification Form Date: 10/17/18 From: Vero Craig/Esther Phone: If questions call Laura Carbajal @ [phone], Hours-8:30 am & 5 pm M- F Admit Date: 09/18/2018 10:09:00 AM Patient Name: Ahmet Maldonado Visit Number: [id number] Discharge Date: 09/23/2018 4:01:00 PM ATTENTION: The Clinical Documentation Specialists (CDI) and [facility] Coding Staff appreciate your assistance in clarifying documentation. Please respond to the clarification below the line at the bottom and electronically sign. The CDI & [facility] Coding staff will review the response and follow-up if needed. Please note: Queries are made part of the Legal Health Record. If you have any questions, please contact the author of this message via ITS. Dr. Berto White Per your progress notes/operative note, a debridement was performed on 09/20. However, report does not indicate if debridement was Excisional or Non-excisional- which is need for billing the correct procedure to the patient's insurance provider. History/Risk Factors: avascular necrosis of R shoulder, torn rotator cuff R shoulder Treatment: Arthroscopic debridement with arthroscopic shaver debrided synovial tissue, loose labral tissue & the greater tuberosity In order to capture the severity of condition and code the appropriate procedure; could you please document the following: Excisional debridement (the removal of necrotic, devitalized tissue or slough by means of cutting away of tissue) Non-excisional debridement (the removal of necrotic, devitalized tissue or slough by means of flushing, brushing, or washing. (Irrigation) Other; please specify It was excisional. The shaver is a cutting instrument and I debrided synovial tissue, loose labral tissue and aspects of the greater tuberosity. Unable to determine MTDD
--- NOTE | 2018-10-17 06:39 | CDI ---
Documentation Clarification Form Date: 10/17/18 From: Vero Craig Phone: If questions call Laura Carbajal @ [phone], Hours-8:30 am & 5 pm M- F Admit Date: 09/18/2018 10:09:00 AM Patient Name: Ahmet Maldonado Visit Number: [id number] Discharge Date: 09/23/2018 4:01:00 PM ATTENTION: The Clinical Documentation Specialists (CDI) and [facility] Coding Staff appreciate your assistance in clarifying documentation. Please respond to the clarification below the line at the bottom and electronically sign. The CDI & [facility] Coding staff will review the response and follow-up if needed. Please note: Queries are made part of the Legal Health Record. If you have any questions, please contact the author of this message via ITS. Dr. Berto White The diagnosis possible septic arthritis was documented in the record , but is not consistently noted in subsequent documentation. History/Risk Factors: erosive OA of R shoulder, Rt torn rotator cuff, avascular necrosis of R shoulder Clinical Indicators: Strept pyogenes (grp a) grew from surgical culture Treatment: IV Vanco switched to IV Rocephin, line placed and discharged home on IV antibiotics Please clarify if the septic arthritis was: Present/active/treated this admission Ruled out Other, please specify Clinically unable to determine MTDD
== END 2018-09-23 16:01 | disposition home health service (06) | DRG 501 ==
LOC: 4SSUR 10:09
PROVIDERS: ADMIT Orthopaedic Surgery Sports Medicine; ATTEND Orthopaedic Surgery Sports Medicine
PROC: 0MB10ZZ Excision of Right Shoulder Bursa and Ligament, Open Approach (ICD-10-PCS; 2018-09-20)
PROC: 0RBJ4ZZ Excision of Right Shoulder Joint, Percutaneous Endoscopic Approach (ICD-10-PCS; 2018-09-20)
PROC: 0RCJ4ZZ Extirpation of Matter from Right Shoulder Joint, Percutaneous Endoscopic Approach (ICD-10-PCS; principal; 2018-09-20 11:30)
PROC: 02HV33Z Insertion of Infusion Device into Superior Vena Cava, Percutaneous Approach (ICD-10-PCS; 2018-09-23)
DX: M87.9 Osteonecrosis, unspecified (principal); G90.511 Complex regional pain syndrome I of right upper limb; M00.9 Pyogenic arthritis, unspecified; M89.711 Major osseous defect, right shoulder region; M75.121 Complete rotator cuff tear or rupture of right shoulder, not specified as traumatic; M65.811 Other synovitis and tenosynovitis, right shoulder; I10 Essential (primary) hypertension; I83.90 Asymptomatic varicose veins of unspecified lower extremity; M15.4 Erosive (osteo)arthritis; Z79.82 Long term (current) use of aspirin; Z79.899 Other long term (current) drug therapy; Z96.612 Presence of left artificial shoulder joint; Z87.01 Personal history of pneumonia (recurrent); Z98.42 Cataract extraction status, left eye; Z98.41 Cataract extraction status, right eye; Z80.9 Family history of malignant neoplasm, unspecified
CPT/HCPCS: 36573; 64415; 80048; 80053; 80202; 82565; 85025; 85027; 85652; 86140; 87040; 87070; 87075; 87077; 87086; 87102; 87116; 87186; 87205; 87206

== ENCOUNTER → 2018-12-12 | Outpatient (CLI) | payer MEDICARE ==
[2018-12-12 09:41] LABS: African American GFR (CKD) >90 (>60 ml/min/1.73 sqM); Blood Urea Nitrogen 22 mg/dL (9-20)
--- NOTE | 2018-12-12 11:18 | CT ---
EXAMINATION TYPE: CT abdomen pelvis w con DATE OF EXAM: 12/12/2018 COMPARISON: CT lumbar spine April 01, 2018. HISTORY: Hematuria CT DLP: 1644 mGycm, Automated Exposure Control for Dose Reduction was Utilized. CONTRAST: CT scan of the abdomen and pelvis is performed with oral and with IV Contrast, patient injected with 100 mL of Isovue 300. FINDINGS: LUNG BASES: Bibasilar linear scarring and/or atelectasis. LIVER/GB: No significant abnormality is appreciated. PANCREAS: No significant abnormality is seen. SPLEEN: No significant abnormality is seen. ADRENALS: No significant abnormality is seen. KIDNEYS: Symmetric cortical medullary uptake and excretion from both kidneys without hydronephrosis o r concerning solid or cystic renal mass in either kidney. No nephrolithiasis noted on recent noncontr ast CT. Moderate to severe concentric abnormal wall thickening and bladder with left pelvic cystic le kev isodense to bladder measuring 4.6 cm axial image 67 favoring diverticulum though luminal connect ion to bladder not well visualized. BOWEL: Oral contrast reaches level of right colon. No suspicious small large bowel dilatation PROSTATE/SEMINAL VESICLES: Slightly prostate gland bulging on bladder base. LYMPH NODES: No greater than 1cm abdominal or pelvic lymph nodes are appreciated. OSSEOUS STRUCTURES: Transitional-type vertebra at lumbosacral junction postsurgical change L3 through the L6 level. Straightening of spine on sagittal images. Moderate narrowing and spurring both hip nydia ints, left worse than right. Slight scoliotic curvature. OTHER: No significant additional abnormality is seen. IMPRESSION: Moderate to severe concentric wall thickening of bladder. Correlate clinically to exclude acute cystitis though finding likely product of underlying neurogenic bladder. No suspicious finding s seen to account for patient's symptoms or hematuria otherwise. Suspect adjacent left pelvic diverti culum. This could be confirmed with ultrasound or additional imaging if desired.
== END | disposition home or self-care (01) ==
LOC: RADCTMAIN 08:55
PROVIDERS: ATTEND Urology
DX: N32.89 Other specified disorders of bladder (principal); R31.0 Gross hematuria; R31.9 Hematuria, unspecified
CPT/HCPCS: 82565; 84520; 74177; 36415; Q9967

== ENCOUNTER → 2021-09-30 | Outpatient (CLI) | payer MEDICARE ==
--- NOTE | 2021-09-30 15:47 | US ---
EXAMINATION TYPE: US kidneys/renal and bladder DATE OF EXAM: 09/30/2021 COMPARISON: NONE CLINICAL HISTORY: R31.0 GROSS HEMATURIA. Gross Hematuria EXAM MEASUREMENTS: Right Kidney: 9.3 x 5.4 x 5.8 cm cm Left Kidney: 10.7 x 5.4 x 4.8 cm Left kidney is less well-visualized than on the right. No discrete mass or cyst is evident. Right Kidney: No hydronephrosis or masses seen Left Kidney: No hydronephrosis or masses seen Bladder: echogenic debris seen, appears to be debris within urinary bladder. Urinary bladder wall is diffusely thickened. Bilateral Jets seen: Yes IMPRESSION: 1. Diffuse urinary bladder wall thickening. Debris is within the urinary bladder could be related to hemorrhage. Underlying mass should be considered. Additional workup is recommended. 2. The kidneys as visualized appear unremarkable.
== END | disposition home or self-care (01) ==
LOC: RADUSWWP 14:42
PROVIDERS: ATTEND Urology
DX: N28.89 Other specified disorders of kidney and ureter (principal); R31.0 Gross hematuria
CPT/HCPCS: 76770